=== PATIENT | male | born 1965 | race Two or more races ===

== ENCOUNTER 2023-02-27 14:48 | Emergency (ER) | payer MEDICAID ==
[~2023-02-27] VITALS: Ht 177.8 cm; Wt 128.8 kg
[~2023-02-27 14:48] MED LIST: IBUP-1955 PO; POLY17PO4 PO
--- NOTE | 2023-02-27 14:55 | NUR ---
LESLIE 860/ [facility] EVALWITH SI, DTS, DENIES HI. [facility] WILL PUT PT ON [id number]
--- NOTE | 2023-02-27 15:00 | NUR ---
dr muhammad at bedside for eval
[2023-02-27 15:25] LABS: BASOPHILS # (AUTO) 0.1 K/uL (0.0-0.2); BASOPHILS % (AUTO) 0.6 % (0.0-2.0); EOSINOPHILS % (AUTO) 1.2 % (0.0-6.0); HEMATOCRIT 39 % (39-51); HEMOGLOBIN 12.8 g/dL (13.5-17.5); LYMPHOCYTES # (AUTO) 1.3 K/uL (0.8-4.8); LYMPHOCYTES % (AUTO) 12.7 % (20.0-44.0); MEAN CORPUSCULAR HGB CONC 33 g/dl (31.0-36.0); MEAN CORPUSCULAR VOLUME 84 fL (80-96); MONOCYTES # (AUTO) 1.2 K/uL (0.1-1.30); MONOCYTES % (AUTO) 11.3 % (2.0-12.0); NEUTROPHILS # (AUTO) 7.6 K/uL (1.8-8.9); NEUTROPHILS % (AUTO) 74.2 % (43.0-81.0); PLATELET COUNT (AUTO) 334 K/uL (150-450); WHITE BLOOD COUNT (AUTO) 10.3 K/uL (4.3-11.0)
[2023-02-27 15:34] LABS: CALCIUM, SERUM 8.6 mg/dL (8.5-10.1); CARBON DIOXIDE 27 mmol/L (21-32); CHLORIDE 104 mmol/L (98-107); CREATININE 0.9 mg/dL (0.6-1.3); GLUCOSE 133 mg/dL (74-106); POTASSIUM 3.2 mmol/L (3.5-5.1); SODIUM SERUM 142 mmol/L (136-145); UREA NITROGEN, BLOOD 18 mg/dL (7-18)
[2023-02-27 15:40] LABS: ALANINE AMINOTRANSFERASE 55 U/L (12-78); ALBUMIN 2.5 g/dL (3.4-5.0); ALCOHOL, BLOOD < 3 mg/dL (0-10); ALKALINE PHOSPHATASE 98 U/L (46-116); ASPARTATE AMINOTRANSFERASE 35 U/L (15-37); BILIRUBIN,DIRECT 0.1 mg/dL (0.0-0.2); BILIRUBIN,TOTAL 0.5 mg/dL (0.2-1.0); TOTAL PROTEIN, SERUM 7.2 g/dL (6.4-8.2)
--- NOTE | 2023-02-27 16:14 | NUR ---
pee on his own , per dr muhammad. pt claims had hx of dilation sx of his urethra, stenotic urethra was noted
--- NOTE | 2023-02-27 16:19 | NUR ---
PLACED URINAL ON SIDE.
--- NOTE | 2023-02-27 18:28 | NUR ---
URINE COLLECTED, SENT TO LAB
[2023-02-27 19:36] LABS: BILIRUBIN,URINE NEGATIVE (NEGATIVE); COLOR,URINE YELLOW (YELLOW); LEUKOCYTE ESTERASE ,URINE 3+ (NEGATIVE); NITRITE, URINE POSITIVE (NEGATIVE); PROTEIN,URINE TRACE mg/dl (NEGATIVE); UGLUCOSE NEGATIVE (NEGATIVE); UROBILINOGEN,URINE 0.2 EU/dL (0.2)
[2023-02-27 19:44] LABS: BACTERIA,URINE 3+ /HPF (None Seen); RBC,URINE 21-50 /HPF (0-2); SQUAMOUS EPITHELIAL CELL,UR 0-2 /HPF (None Seen); WBC,URINE 51-80 /HPF (0-3)
[2023-02-27 19:55] LABS: BAND % (MANUAL) 2 % (0.0-5.0); EOSINOPHILS % (MANUAL) 2 % (0-4); LYMPHOCYTES % (MANUAL) 15 % (16-48); MONOCYTES % (MANUAL) 3 % (0-11.0); NEUTROPHILS % (MANUAL) 78 (42-76)
--- NOTE | 2023-02-27 20:47 | NUR ---
patient was evaluated by [facility] crisis team through video call
--- NOTE | 2023-02-27 21:00 | NUR ---
[facility] broke the hold and she is going to look for a placement.
--- NOTE | 2023-02-28 09:44 | NUR ---
IVANIA KEN AT BED SIDE FOR RE ASSESSMENT
--- NOTE | 2023-02-28 09:59 | NUR ---
SW called patient's mother Denise informing that the patient is ready to be picked up from [facility]. Left a message
--- NOTE | 2023-02-28 10:19 | NUR ---
patient mother at bed side.
--- NOTE | 2023-02-28 10:49 | NUR ---
Patient's mother Denise is elderly and can't take care of the patient. SW provided her with a list of SNF's and suggested she looks for a private caregiver is the patient is to stay at home.
--- NOTE | 2023-02-28 11:41 | NUR ---
Gave patient's mother Denise a referral for [facility] for the patient.
--- NOTE | 2023-02-28 12:20 | NUR ---
CALLED [facility] AND SET UP BLS TRANSPORT ETA 1300
--- NOTE | 2023-02-28 13:19 | NUR ---
TRANSPORTATION ARRIVED, REPORT GIVEN, PT LEAVING IN STABLE CONDITION.
[2023-02-28 13:25] VITALS: BP 132/91; TEMP 97.9; O2SAT 98
== END 2023-02-28 13:59 | disposition home or self-care (01) ==
LOC: ER 14:53
DX: R45.851 Suicidal ideations (principal); F20.9 Schizophrenia, unspecified; Z20.822 Contact with and (suspected) exposure to COVID-19
CPT/HCPCS: 99285; 85025; 80048; 87086; 80076; 85007; 81001; 36415; 87426; 80143; 80320; 80307; C9803; G0480

== ENCOUNTER 2024-07-04 07:56 | Inpatient (IN) | payer MEDICAID ==
[2024-07-04] VITALS (49 sets, daily range): BP systolic 78–145; BP diastolic 61–130; TEMP 99–104; O2SAT 95–100
[~2024-07-04] VITALS: Ht 182.9 cm; Wt 95.3 kg
[2024-07-04 08:18] LABS: BASOPHILS % (AUTO) 0.3 % (0.0-2.0); HEMATOCRIT 53 % (39-51); HEMOGLOBIN 17.5 g/dL (13.5-17.5); LYMPHOCYTES % (AUTO) 14.7 % (20.0-44.0); MEAN CORPUSCULAR HEMOGLOBIN 30 PG (26.0-33.0); MEAN CORPUSCULAR HGB CONC 33 g/dl (31.0-36.0); MEAN CORPUSCULAR VOLUME 92 fL (80-96); MONOCYTES # (AUTO) 0.9 K/uL (0.1-1.30); MONOCYTES % (AUTO) 14.5 % (2.0-12.0); NEUTROPHILS # (AUTO) 4.6 K/uL (1.8-8.9); NEUTROPHILS % (AUTO) 70.5 % (43.0-81.0); PLATELET COUNT (AUTO) 129 K/uL (150-450); RED BLOOD CELL COUNT(AUTO) 5.84 MIL/uL (4.5-6.0); RED CELL DISTRIBUTION WIDTH 16.8 % (11.5-15.0); WHITE BLOOD COUNT (AUTO) 6.5 K/uL (4.3-11.0)
[2024-07-04] MEDS ORDERED: ACETAMINOPHEN 650 MG/SUPP.RECT RC ONE (08:25)
[2024-07-04] MEDS: IV NS 0.9% 1,000 ML BAG IV ONE (08:30)
[2024-07-04 08:33] LABS: INR 1.22 (0.91-1.10); PARTIAL THROMBOPLASTIN TIME 25.5 SEC (24.3-34.3); PROTHROMBIN TIME 12.8 SECS (9.2-11.1)
[2024-07-04] MEDS: ACETAMINOPHEN 650 MG/SUPP.RECT RC ONE (08:35)
[2024-07-04] MEDS: CEFEPIME 1 GM in IV D5W 50 ML IV ONE (08:40)
[2024-07-04 08:54] LABS: BAND % (MANUAL) 2 % (0.0-5.0); LYMPHOCYTES % (MANUAL) 16 % (16-48); MONOCYTES % (MANUAL) 2 % (0-11.0); MYELOCYTES % 1 % (0-0); NEUTROPHILS % (MANUAL) 79 (42-76)
[2024-07-04 08:56] LABS: ANISOCYTOSIS 1+; PLATELET ESTIMATE DECREASED
[2024-07-04 09:07] LABS: ABG BASE EXCESS -1.6 mmol/L (-2.0-3.0); ABG OXYGEN SATURATION 91.5 % (94.0-98.0); ABG PCO2 28.3 mmHg (35.0-48.0); ABG PH 7.477 (7.350-7.450); ABG PO2 60.3 mmHg (83.0-108.0); ABG TOTAL HEMOGLOBIN 15.9 G/dL (13.5-17.5); COHb 0.2 % (0.5-1.5); MetHb 0.5 % (0.0-1.5); O2Hb 90.9 % (94.0-97.0); SITE, ABG RIGHT RADIAL
[2024-07-04 09:07] LABS: LACTIC ACID 3.4 mmol/L (0.4-2.0)
[2024-07-04 09:11] LABS: CALCIUM, SERUM 8.4 mg/dL (8.5-10.1); CARBON DIOXIDE 24 mmol/L (21-32); CREATININE 1.9 mg/dL (0.6-1.3); GLUCOSE 241 mg/dL (74-106); POTASSIUM 3.6 mmol/L (3.5-5.1); UREA NITROGEN, BLOOD 74 mg/dL (7-18)
[2024-07-04 09:12] LABS: CHLORIDE 130 mmol/L (98-107); SODIUM SERUM 167 mmol/L (136-145)
[2024-07-04 09:16] LABS: ALANINE AMINOTRANSFERASE 80 U/L (12-78); ALBUMIN 2.5 g/dL (3.4-5.0); ALKALINE PHOSPHATASE 107 U/L (46-116); ASPARTATE AMINOTRANSFERASE 27 U/L (15-37); BILIRUBIN,DIRECT 0.2 mg/dL (0.0-0.2); BILIRUBIN,TOTAL 0.6 mg/dL (0.2-1.0); TOTAL PROTEIN, SERUM 6.9 g/dL (6.4-8.2)
[2024-07-04] MEDS: VANCOMYCIN 1 GM in IV D5W 250 ML IV ONE (09:30)
[2024-07-04] MEDS ORDERED: HYDR25TA4 PO (09:43)
[2024-07-04] MEDS ORDERED: ARIP10TA57 PO (09:43)
[2024-07-04] MEDS ORDERED: ACET325T53 PO ×2 (09:43)
[2024-07-04] MEDS ORDERED: DAPA10TA PO (09:43)
[2024-07-04] MEDS ORDERED: LISI10TA29 PO (09:43)
[2024-07-04] MEDS ORDERED: LACT10SO29 PO (09:43)
[2024-07-04] MEDS ORDERED: ASPI-1169 PO (09:43)
[2024-07-04] MEDS ORDERED: MULT-213 PO (09:43)
[2024-07-04] MEDS ORDERED: MAGN400O6 PO (09:43)
[2024-07-04] MEDS ORDERED: BISA10SU11 RC (09:43)
[2024-07-04] MEDS ORDERED: NA P133E RC (09:43)
[2024-07-04] MEDS ORDERED: ACET-73 PO (09:43)
[2024-07-04] MEDS ORDERED: SENN8.6T19 PO (09:43)
[2024-07-04] MEDS: NOREPINEPHRINE 8 MG in IV D5W 242 ML IV PRN ×2 (09:59→12:30)
[2024-07-04] MEDS ORDERED: ASPIRIN 300 MG/SUPP.RECT RC ONE (10:11)
[2024-07-04] MEDS: ASPIRIN 300 MG/SUPP.RECT RC ONE (10:19)
[2024-07-04] MEDS ORDERED: DEXTROSE 50%-WATER 50 ML DISP.SYRIN IV PRN (11:00)
[2024-07-04 12:00] LABS: APPEARANCE,URINE TURBID (CLEAR); COLOR,URINE BROWN (YELLOW)
[2024-07-04] MEDS ORDERED: CEFEPIME 1 GM in IV D5W 50 ML IV SCH (12:00)
[2024-07-04 12:26] LABS: BACTERIA,URINE 1+ /HPF (None Seen); RBC,URINE 51-80 /HPF (0-2); SQUAMOUS EPITHELIAL CELL,UR 0-2 /HPF (None Seen); WBC,URINE 51-80 /HPF (0-3)
[2024-07-04] MEDS: NOREPINEPHRINE 8 MG in IV NS 0.9% 250 ML IV PRN (12:30)
[2024-07-04] MEDS: BLOOD SUGAR DIAGNOSTIC 1 EACH STRIP IN SCH ×2 (12:36→17:38)
[2024-07-04] MEDS: IV LR 1000 ML 1,000 ML IV SCH (12:37)
[2024-07-04] MEDS: ACETAMINOPHEN 650 MG/SUPP.RECT RC PRN ×2 (12:40→18:00)
[2024-07-04] MEDS: VANCOMYCIN 750 MG in IV D5W 250 ML IV ONE (12:54)
[2024-07-04] MEDS: INSULIN REGULAR, HUMAN 100 UNIT/ML 3 ML VIAL SQ PRN ×2 (13:04→17:43)
[2024-07-04] MEDS: IV NS 0.9% 1,000 ML IV ONE (13:46)
[2024-07-04] MEDS: IV LR 1000 ML 1,000 ML IV PRN (18:00)
[2024-07-04] MEDS: CEFEPIME 1 GM in IV D5W 50 ML IV SCH (19:20)
[2024-07-04] MEDS: HEPARIN SODIUM, PORCINE 5000 UNITS/1 ML VIAL IV ONE (20:26)
[2024-07-04] MEDS: HEPARIN INFUSION/D5W 500 ML IV PRN (20:31)
[2024-07-05] VITALS (102 sets, daily range): BP systolic 60–152; BP diastolic 41–110; TEMP 99–102.6; O2SAT 95–100
[2024-07-05 02:58] LABS: CALCIUM, SERUM 7.5 mg/dL (8.5-10.1); CREATININE 1.4 mg/dL (0.6-1.3)
[2024-07-05 03:13] LABS: THYROID STIMULATING HORMONE 0.18 uIU/mL (0.358-3.74)
[2024-07-05 03:20] LABS: LACTIC ACID 2.5 mmol/L (0.4-2.0); POTASSIUM 2.5 mmol/L (3.5-5.1)
[2024-07-05] MEDS: POTASSIUM CL. PREMIX PERIPHER. 50 ML IV SCH (04:07)
[2024-07-05 04:44] LABS: FIBRINOGEN ACTIVITY 637 Mg/dL (213-485); INR 1.37 (0.91-1.10); PROTHROMBIN TIME 14.2 SECS (9.2-11.1)
[2024-07-05 04:49] LABS: D-DIMER > 35.20 mg/L(FEU (0.17-0.50); PARTIAL THROMBOPLASTIN TIME 77.6 SEC (24.3-34.3)
[2024-07-05 05:30] LABS: ABG BASE EXCESS -1.4 mmol/L (-2.0-3.0); ABG OXYGEN SATURATION 94.1 % (94.0-98.0); ABG PH 7.447 (7.350-7.450); ABG PO2 68.2 mmHg (83.0-108.0); ABG TOTAL HEMOGLOBIN 15.2 G/dL (13.5-17.5); COHb 0.2 % (0.5-1.5); MetHb 0.3 % (0.0-1.5); O2Hb 93.6 % (94.0-97.0); SITE, ABG RIGHT RADIAL
[2024-07-05] MEDS: PHENYLEPHRINE 100 MG in IV NS 0.9% 240 ML IV PRN (09:22)
[2024-07-05] MEDS ORDERED: AMIODARONE 450 MG in IV D5W 241 ML IV PRN (09:30)
[2024-07-05] MEDS: AMIODARONE 150 MG in IV D5W 100 ML IV ONE (09:31)
[2024-07-05] MEDS: AMIODARONE 450 MG in IV D5W 241 ML IV PRN (09:47)
[2024-07-05] MEDS: IV 1/2NS 1000 ML 1,000 ML IV PRN (09:52)
[2024-07-05] MEDS ORDERED: POTASSIUM CL. PREMIX PERIPHER. 50 ML IV SCH (10:00)
[2024-07-05] MEDS: IV NS 0.9% 250 ML IV ONE ×2 (10:25→10:53)
[2024-07-05] MEDS: HYDROCORTISONE SOD SUCCINATE 100 MG/2 ML VIAL IV SCH (10:36)
[2024-07-05 10:46] LABS: ABG OXYGEN SATURATION 90.4 % (94.0-98.0); ABG PCO2 21.2 mmHg (35.0-48.0); ABG PH 7.342 (7.350-7.450); ABG PO2 60.6 mmHg (83.0-108.0); ABG TOTAL HEMOGLOBIN 15.2 G/dL (13.5-17.5); COHb 0.3 % (0.5-1.5); MetHb 0.2 % (0.0-1.5); O2Hb 89.9 % (94.0-97.0); SITE, ABG RIGHT BRACHIAL
[2024-07-05 11:44] LABS: BASOPHILS % (AUTO) 0.2 % (0.0-2.0); EOSINOPHILS % (AUTO) 0.1 % (0.0-6.0); HEMATOCRIT 40 % (39-51); HEMOGLOBIN 13.1 g/dL (13.5-17.5); LYMPHOCYTES # (AUTO) 0.8 K/uL (0.8-4.8); LYMPHOCYTES % (AUTO) 13.9 % (20.0-44.0); MEAN CORPUSCULAR HEMOGLOBIN 30 PG (26.0-33.0); MEAN CORPUSCULAR HGB CONC 33 g/dl (31.0-36.0); MEAN CORPUSCULAR VOLUME 92 fL (80-96); MONOCYTES # (AUTO) 0.5 K/uL (0.1-1.30); MONOCYTES % (AUTO) 7.7 % (2.0-12.0); NEUTROPHILS # (AUTO) 4.7 K/uL (1.8-8.9); NEUTROPHILS % (AUTO) 78.1 % (43.0-81.0); PLATELET COUNT (AUTO) 87 K/uL (150-450); RED CELL DISTRIBUTION WIDTH 17.3 % (11.5-15.0)
[2024-07-05 11:58] LABS: INR 1.39 (0.91-1.10); PROTHROMBIN TIME 14.4 SECS (9.2-11.1)
[2024-07-05 12:01] LABS: BAND % (MANUAL) 5 % (0.0-5.0); LYMPHOCYTES % (MANUAL) 13 % (16-48); MONOCYTES % (MANUAL) 5 % (0-11.0); NEUTROPHILS % (MANUAL) 77 (42-76)
[2024-07-05 12:02] LABS: PLATELET ESTIMATE DECREASED
[2024-07-05 12:08] LABS: ALBUMIN 1.5 g/dL (3.4-5.0); BILIRUBIN,TOTAL 0.7 mg/dL (0.2-1.0); CALCIUM, SERUM 7.2 mg/dL (8.5-10.1); CREATININE 1.5 mg/dL (0.6-1.3); MAGNESIUM 2.3 mg/dL (1.8-2.4); PHOSPHORUS 2.8 mg/dL (2.5-4.9); POTASSIUM 4.7 mmol/L (3.5-5.1); TOTAL PROTEIN, SERUM 4.9 g/dL (6.4-8.2)
[2024-07-05 12:14] LABS: THYROID STIMULATING HORMONE 0.48 uIU/mL (0.358-3.74)
[2024-07-05] MEDS: PROPOFOL 100 ML IV PRN (12:46)
[2024-07-05] MEDS: VANCOMYCIN HCL 1.25 GM in IV D5W 250 ML IV SCH (12:54)
[2024-07-05] MEDS: IV NS 0.9% 1,000 ML IV PRN (13:02)
[2024-07-05] MEDS: HEPARIN INFUSION/D5W 500 ML IV PRN (13:36)
[2024-07-05 13:37] LABS: ABG BASE EXCESS -7.9 mmol/L (-2.0-3.0); ABG PCO2 28.2 mmHg (35.0-48.0); ABG PH 7.369 (7.350-7.450); ABG PO2 78.5 mmHg (83.0-108.0); ABG TOTAL HEMOGLOBIN 13.9 G/dL (13.5-17.5); COHb 0.4 % (0.5-1.5); MetHb 0.2 % (0.0-1.5); O2Hb 94.4 % (94.0-97.0); PEEP,BG 0 cm H2O; SITE, ABG RIGHT BRACHIAL; VT, ABG 450 mL
[2024-07-05 14:57] LABS: CREATININE 1.4 mg/dL (0.6-1.3); POTASSIUM 3.6 mmol/L (3.5-5.1)
[2024-07-05] MEDS ORDERED: ETOMIDATE 2 MG/ML VIAL IV ONE (14:59)
[2024-07-05 15:14] LABS: CREATININE, URINE 71.3 MG/DL (30.0-125.0); URINE TOTAL PROTEIN 356.6 mg/dL (0-11.9)
[2024-07-05 15:40] LABS: COLOR,URINE RED (YELLOW)
[2024-07-05 15:41] LABS: APPEARANCE,URINE BLOODY (CLEAR); RBC,URINE TOO NUMEROUS TO COUN /HPF (0-2)
[2024-07-05 15:42] LABS: BACTERIA,URINE 2+ /HPF (None Seen)
[2024-07-05 15:43] LABS: FINE GRANULAR CASTS,URINE Few /LPF (None Seen); OTHER CASTS, URINE MIXED CELL CASTS 1+ /LPF (None Seen); SQUAMOUS EPITHELIAL CELL,UR 0-2 /HPF (None Seen)
[2024-07-05 15:44] LABS: URINE AMORPHOUS PHOSPHATES NOTE /HPF (None Seen)
[2024-07-05 17:59] LABS: EOSINOPHIL,URINE None Seen
[2024-07-06] VITALS (97 sets, daily range): BP systolic 83–131; BP diastolic 58–96; TEMP 100–100.7; O2SAT 92–100
[2024-07-06 01:19] LABS: HEMOGLOBIN 12.6 g/dL (13.5-17.5)
[2024-07-06] MEDS: AMIODARONE 150 MG/3 ML VIAL IV ONE (04:17)
[2024-07-06 05:12] LABS: BASOPHILS % (AUTO) 0.3 % (0.0-2.0); EOSINOPHILS % (AUTO) 0.1 % (0.0-6.0); HEMATOCRIT 44 % (39-51); LYMPHOCYTES # (AUTO) 1.1 K/uL (0.8-4.8); LYMPHOCYTES % (AUTO) 13.5 % (20.0-44.0); MEAN CORPUSCULAR HEMOGLOBIN 30 PG (26.0-33.0); MEAN CORPUSCULAR HGB CONC 32 g/dl (31.0-36.0); MEAN CORPUSCULAR VOLUME 93 fL (80-96); MONOCYTES # (AUTO) 0.6 K/uL (0.1-1.30); MONOCYTES % (AUTO) 7.6 % (2.0-12.0); NEUTROPHILS # (AUTO) 6.4 K/uL (1.8-8.9); NEUTROPHILS % (AUTO) 78.5 % (43.0-81.0); PLATELET COUNT (AUTO) 85 K/uL (150-450); RED BLOOD CELL COUNT(AUTO) 4.73 MIL/uL (4.5-6.0); RED CELL DISTRIBUTION WIDTH 17.6 % (11.5-15.0); WHITE BLOOD COUNT (AUTO) 8.1 K/uL (4.3-11.0)
[2024-07-06 05:26] LABS: PARTIAL THROMBOPLASTIN TIME 83.4 SEC (24.3-34.3)
[2024-07-06 05:56] LABS: BILIRUBIN,TOTAL 0.5 mg/dL (0.2-1.0); CALCIUM, SERUM 7.1 mg/dL (8.5-10.1); MAGNESIUM 2.3 mg/dL (1.8-2.4); PHOSPHORUS 2.1 mg/dL (2.5-4.9); POTASSIUM 3.4 mmol/L (3.5-5.1); TOTAL PROTEIN, SERUM 5.3 g/dL (6.4-8.2)
[2024-07-06 05:58] LABS: RHEUMATOID FACTOR SCREEN NEGATIVE (NEGATIVE)
[2024-07-06 06:05] LABS: ALBUMIN 1.4 g/dL (3.4-5.0)
[2024-07-06 07:02] LABS: C-REACTIVE PROTEIN 40.22 mg/dL (0.0-0.30)
[2024-07-06] MEDS: VANCOMYCIN 750 MG in IV D5W 250 ML IV SCH (09:00)
[2024-07-06 09:14] LABS: BAND % (MANUAL) 3 % (0.0-5.0); BASOPHILS % (MANUAL) 0 % (0.0-2.0); EOSINOPHILS % (MANUAL) 0 % (0-4); LYMPHOCYTES % (MANUAL) 18 % (16-48); MONOCYTES % (MANUAL) 4 % (0-11.0); NEUTROPHILS % (MANUAL) 75 (42-76); PLATELET ESTIMATE DECREASED
[2024-07-06 09:15] LABS: ANISOCYTOSIS 1+
[2024-07-06] MEDS: POTASSIUM CL. PREMIX PERIPHER. 50 ML IV SCH (09:23)
[2024-07-06 09:47] LABS: ABG BASE EXCESS -7.2 mmol/L (-2.0-3.0); ABG OXYGEN SATURATION 94.5 % (94.0-98.0); ABG PCO2 26.8 mmHg (35.0-48.0); ABG PH 7.396 (7.350-7.450); ABG PO2 68.3 mmHg (83.0-108.0); ABG TOTAL HEMOGLOBIN 12.9 G/dL (13.5-17.5); COHb 0.3 % (0.5-1.5); MetHb 0.1 % (0.0-1.5); O2Hb 94.1 % (94.0-97.0); PEEP,BG 0 cm H2O; SITE, ABG LEFT BRACHIAL; VT, ABG 450 mL
[2024-07-06] MEDS: NEUTRA PHOS 1 POWD.PACKET NG SCH (10:33)
[2024-07-06] MEDS: CEFEPIME 2 GM in IV D5W 100 ML IV SCH (12:15)
[2024-07-06] MEDS: AMIODARONE HCL 200 MG TABLET NG SCH (20:48)
[2024-07-07] VITALS (67 sets, daily range): BP systolic 87–121; BP diastolic 65–88; TEMP 98.2–99.8; O2SAT 96–100
[2024-07-07 02:07] LABS: FOLIC ACID 9.1 ng/mL (>3.0); HEPATITIS B SURFACE AB Non Reactive (.)
[2024-07-07 04:43] LABS: PARTIAL THROMBOPLASTIN TIME 37.7 SEC (24.3-34.3)
[2024-07-07 05:22] LABS: CALCIUM, SERUM 7.1 mg/dL (8.5-10.1); CREATININE 0.9 mg/dL (0.6-1.3); POTASSIUM 3.2 mmol/L (3.5-5.1)
[2024-07-07] MEDS ORDERED: POTASSIUM CHLORIDE 10 MEQ TABLET.SA GT ONE (07:00)
[2024-07-07 07:06] LABS: *HEPATITIS B SURFACE AG CONF Positive (.)
[2024-07-07] MEDS: POTASSIUM CHLORIDE 20 MEQ POWDER PACKET GT ONE (07:58)
[2024-07-07 08:08] LABS: IMMUNOGLOBULIN A, SERUM 336 mg/dL (90-386); IMMUNOGLOBULIN M, SERUM 40 mg/dL (20-172)
[2024-07-07 08:59] LABS: BASOPHILS % (AUTO) 0.2 % (0.0-2.0); HEMATOCRIT 34 % (39-51); LYMPHOCYTES # (AUTO) 0.8 K/uL (0.8-4.8); LYMPHOCYTES % (AUTO) 6.8 % (20.0-44.0); MEAN CORPUSCULAR HEMOGLOBIN 29 PG (26.0-33.0); MEAN CORPUSCULAR HGB CONC 33 g/dl (31.0-36.0); MEAN CORPUSCULAR VOLUME 89 fL (80-96); MONOCYTES # (AUTO) 0.6 K/uL (0.1-1.30); MONOCYTES % (AUTO) 5.4 % (2.0-12.0); NEUTROPHILS # (AUTO) 10.1 K/uL (1.8-8.9); NEUTROPHILS % (AUTO) 87.6 % (43.0-81.0); PLATELET COUNT (AUTO) 99 K/uL (150-450); RED BLOOD CELL COUNT(AUTO) 3.78 MIL/uL (4.5-6.0); RED CELL DISTRIBUTION WIDTH 16.7 % (11.5-15.0); WHITE BLOOD COUNT (AUTO) 11.5 K/uL (4.3-11.0)
[2024-07-07] MEDS: HYDROCORTISONE SOD SUCCINATE 100 MG/2 ML VIAL IV SCH (09:12)
[2024-07-07 10:07] LABS: *ANA ANTI-CENTROMERE B AB <0.2 AI (0.0-0.9); *ANA ANTI-DNA(DS) AB, QN 1 IU/mL (0-9); *ANA ANTI-JO-1 <0.2 AI (0.0-0.9); *ANA ANTICHROMATIN ANTIBODY <0.2 AI (0.0-0.9); *ANA RNP ANTIBODIES <0.2 AI (0.0-0.9); *ANA SJOGREN'S ANTI-SS-A <0.2 AI (0.0-0.9); *ANA SJOGREN'S ANTI-SS-B <0.2 AI (0.0-0.9); *ANAANTI-SCLERODERMA-70 AB <0.2 AI (0.0-0.9); *ANASMITH AB <0.2 AI (0.0-0.9)
[2024-07-07 12:09] LABS: FREE KAPPA LT CHAINS SERUM 60.8 mg/L (3.3-19.4); FREE LAMBDA LT CHAIN SERUM 32.8 mg/L (5.7-26.3); KAPPA/LAMBDA RATIO SERUM 1.85 (0.26-1.65)
[2024-07-07] MEDS: VANCOMYCIN 750 MG in IV D5W 250 ML IV SCH (20:01)
[2024-07-08] VITALS (75 sets, daily range): BP systolic 82–123; BP diastolic 63–87; TEMP 98.1–99.6; O2SAT 96–100
[2024-07-08 04:48] LABS: CALCIUM, SERUM 7.4 mg/dL (8.5-10.1); CREATININE 0.9 mg/dL (0.6-1.3); POTASSIUM 3.2 mmol/L (3.5-5.1)
[2024-07-08 05:03] LABS: PARTIAL THROMBOPLASTIN TIME 48.7 SEC (24.3-34.3)
[2024-07-08] MEDS ORDERED: POTASSIUM CL. PREMIX PERIPHER. 50 ML IV SCH (09:30)
[2024-07-08] MEDS: POTASSIUM CL. PREMIX PERIPHER. 50 ML IV SCH (12:11)
[2024-07-08] MEDS: IV D5W 1,000 ML IV PRN (12:27)
[2024-07-08 17:12] LABS: BASOPHILS % (AUTO) 0.2 % (0.0-2.0); HEMATOCRIT 33 % (39-51); HEMOGLOBIN 10.9 g/dL (13.5-17.5); LYMPHOCYTES # (AUTO) 1.1 K/uL (0.8-4.8); LYMPHOCYTES % (AUTO) 5.5 % (20.0-44.0); MEAN CORPUSCULAR HEMOGLOBIN 29 PG (26.0-33.0); MEAN CORPUSCULAR HGB CONC 33 g/dl (31.0-36.0); MEAN CORPUSCULAR VOLUME 89 fL (80-96); MONOCYTES # (AUTO) 0.8 K/uL (0.1-1.30); NEUTROPHILS # (AUTO) 18.9 K/uL (1.8-8.9); NEUTROPHILS % (AUTO) 90.3 % (43.0-81.0); PLATELET COUNT (AUTO) 143 K/uL (150-450); RED BLOOD CELL COUNT(AUTO) 3.75 MIL/uL (4.5-6.0); RED CELL DISTRIBUTION WIDTH 16.6 % (11.5-15.0); WHITE BLOOD COUNT (AUTO) 20.9 K/uL (4.3-11.0)
[2024-07-09] VITALS (75 sets, daily range): BP systolic 84–139; BP diastolic 64–95; TEMP 97.9–99.3; O2SAT 92–100
[2024-07-09 04:48] LABS: CALCIUM, SERUM 7.4 mg/dL (8.5-10.1)
[2024-07-09 04:51] LABS: PARTIAL THROMBOPLASTIN TIME 48.2 SEC (24.3-34.3)
[2024-07-09 05:08] LABS: BASOPHILS % (AUTO) 0.3 % (0.0-2.0); EOSINOPHILS # (AUTO) 0.3 K/uL (0.0-0.7); HEMATOCRIT 31 % (39-51); HEMOGLOBIN 10.1 g/dL (13.5-17.5); LYMPHOCYTES # (AUTO) 1.5 K/uL (0.8-4.8); LYMPHOCYTES % (AUTO) 8.3 % (20.0-44.0); MEAN CORPUSCULAR HEMOGLOBIN 29 PG (26.0-33.0); MEAN CORPUSCULAR HGB CONC 33 g/dl (31.0-36.0); MEAN CORPUSCULAR VOLUME 89 fL (80-96); MONOCYTES # (AUTO) 0.6 K/uL (0.1-1.30); MONOCYTES % (AUTO) 3.7 % (2.0-12.0); NEUTROPHILS % (AUTO) 85.7 % (43.0-81.0); PLATELET COUNT (AUTO) 129 K/uL (150-450); RED BLOOD CELL COUNT(AUTO) 3.46 MIL/uL (4.5-6.0); RED CELL DISTRIBUTION WIDTH 16.6 % (11.5-15.0); WHITE BLOOD COUNT (AUTO) 17.5 K/uL (4.3-11.0)
[2024-07-09 06:13] LABS: BAND % (MANUAL) 2 % (0.0-5.0); LYMPHOCYTES % (MANUAL) 7 % (16-48); MONOCYTES % (MANUAL) 3 % (0-11.0); MYELOCYTES % 6 % (0-0); NEUTROPHILS % (MANUAL) 82 (42-76)
[2024-07-09 06:14] LABS: PLATELET ESTIMATE DECREASED
[2024-07-09 06:15] LABS: ANISOCYTOSIS 1+; OVALOCYTES 1+
[2024-07-09] MEDS: CEFEPIME 2 GM in IV D5W 100 ML IV SCH (08:23)
[2024-07-09] MEDS: POTASSIUM CHLORIDE 20 MEQ POWDER PACKET NG SCH (10:43)
[2024-07-09] MEDS: THERAHONEY GEL 1.5 OZ TUBE TP SCH (11:21)
[2024-07-09] MEDS: DAKINS HALF STRENGTH (0.25%) 480 ML BOTTLE TOP SCH (16:01)
[2024-07-09] MEDS: GLUCERNA 1.2 1,000 ML BOTTLE NG PRN (17:45)
[2024-07-10] VITALS (42 sets, daily range): BP systolic 82–118; BP diastolic 63–88; TEMP 98.6–99.5; O2SAT 88–100
[2024-07-10 03:07] LABS: IMMUNOGLOBULIN A, SERUM 318 mg/dL (90-386); IMMUNOGLOBULIN G, SERUM 606 mg/dL (603-1613); IMMUNOGLOBULIN M, SERUM 37 mg/dL (20-172)
[2024-07-10] MEDS: MORPHINE SULFATE INJ 2 MG/ML DISP.SYRIN IV ONE (03:55)
[2024-07-10] MEDS ORDERED: MORPHINE SULFATE 8 MG/ML VIAL IV ONE (04:00)
[2024-07-10 04:55] LABS: BASOPHILS % (AUTO) 0.2 % (0.0-2.0); EOSINOPHILS # (AUTO) 0.1 K/uL (0.0-0.7); EOSINOPHILS % (AUTO) 0.3 % (0.0-6.0); HEMATOCRIT 35 % (39-51); HEMOGLOBIN 11.6 g/dL (13.5-17.5); LYMPHOCYTES # (AUTO) 1.4 K/uL (0.8-4.8); LYMPHOCYTES % (AUTO) 5.4 % (20.0-44.0); MEAN CORPUSCULAR HEMOGLOBIN 29 PG (26.0-33.0); MEAN CORPUSCULAR HGB CONC 33 g/dl (31.0-36.0); MEAN CORPUSCULAR VOLUME 89 fL (80-96); MONOCYTES # (AUTO) 0.7 K/uL (0.1-1.30); MONOCYTES % (AUTO) 2.6 % (2.0-12.0); NEUTROPHILS # (AUTO) 23.2 K/uL (1.8-8.9); NEUTROPHILS % (AUTO) 91.5 % (43.0-81.0); PLATELET COUNT (AUTO) 174 K/uL (150-450); RED BLOOD CELL COUNT(AUTO) 3.99 MIL/uL (4.5-6.0); RED CELL DISTRIBUTION WIDTH 16.5 % (11.5-15.0); WHITE BLOOD COUNT (AUTO) 25.3 K/uL (4.3-11.0)
[2024-07-10 04:58] LABS: CALCIUM, SERUM 7.8 mg/dL (8.5-10.1); CREATININE 1.1 mg/dL (0.6-1.3)
[2024-07-10 05:06] LABS: PARTIAL THROMBOPLASTIN TIME 61.7 SEC (24.3-34.3)
[2024-07-10 05:11] LABS: HEPATITIS B CORE AB, IgM Negative (Negative); HEPATITIS Be AG Negative (Negative)
[2024-07-10 05:12] LABS: POTASSIUM 2.3 mmol/L (3.5-5.1)
[2024-07-10] MEDS: POTASSIUM CL. PREMIX PERIPHER. 50 ML IV SCH ×2 (05:47→07:59)
[2024-07-10 06:20] LABS: BAND % (MANUAL) 3 % (0.0-5.0); LYMPHOCYTES % (MANUAL) 12 % (16-48); METAMYELOCYTES % 1 % (0-0); MONOCYTES % (MANUAL) 2 % (0-11.0); MYELOCYTES % 5 % (0-0); NEUTROPHILS % (MANUAL) 77 (42-76); PLATELET ESTIMATE ADEQUATE
[2024-07-10 08:45] LABS: ABG BASE EXCESS -2.9 mmol/L (-2.0-3.0); ABG PCO2 29.5 mmHg (35.0-48.0); ABG PO2 67.8 mmHg (83.0-108.0); ABG TOTAL HEMOGLOBIN 11.8 G/dL (13.5-17.5); COHb 0.4 % (0.5-1.5); MetHb 0.1 % (0.0-1.5); O2Hb 93.5 % (94.0-97.0); PEEP,BG 5 cm H2O; SITE, ABG RIGHT RADIAL; VT, ABG 450 mL
[2024-07-10] MEDS: FREE WATER VIA TUBE FEEDING GT SCH (08:52)
[2024-07-10 11:09] LABS: IMMUNOGLOBULIN G, SERUM 688 mg/dL (603-1613)
[2024-07-10 16:22] LABS: CALCIUM, SERUM 7.3 mg/dL (8.5-10.1); CREATININE 1.1 mg/dL (0.6-1.3); POTASSIUM 3.1 mmol/L (3.5-5.1)
[2024-07-11] VITALS (32 sets, daily range): BP systolic 97–134; BP diastolic 65–94; TEMP 99.3–99.5; O2SAT 89–99
[2024-07-11 05:26] LABS: BASOPHILS % (AUTO) 0.1 % (0.0-2.0); EOSINOPHILS # (AUTO) 0.1 K/uL (0.0-0.7); EOSINOPHILS % (AUTO) 0.2 % (0.0-6.0); HEMATOCRIT 32 % (39-51); HEMOGLOBIN 10.5 g/dL (13.5-17.5); LYMPHOCYTES % (AUTO) 4.1 % (20.0-44.0); MEAN CORPUSCULAR HEMOGLOBIN 29 PG (26.0-33.0); MEAN CORPUSCULAR HGB CONC 33 g/dl (31.0-36.0); MEAN CORPUSCULAR VOLUME 88 fL (80-96); MONOCYTES # (AUTO) 0.7 K/uL (0.1-1.30); MONOCYTES % (AUTO) 2.8 % (2.0-12.0); NEUTROPHILS # (AUTO) 21.8 K/uL (1.8-8.9); NEUTROPHILS % (AUTO) 92.8 % (43.0-81.0); PLATELET COUNT (AUTO) 178 K/uL (150-450); RED BLOOD CELL COUNT(AUTO) 3.59 MIL/uL (4.5-6.0); RED CELL DISTRIBUTION WIDTH 16.1 % (11.5-15.0); WHITE BLOOD COUNT (AUTO) 23.5 K/uL (4.3-11.0)
[2024-07-11 05:36] LABS: CALCIUM, SERUM 7.6 mg/dL (8.5-10.1)
[2024-07-11 05:40] LABS: INR 1.2 (0.91-1.10); PARTIAL THROMBOPLASTIN TIME 73.2 SEC (24.3-34.3); PROTHROMBIN TIME 12.6 SECS (9.2-11.1)
[2024-07-11 05:57] LABS: POTASSIUM 2.6 mmol/L (3.5-5.1)
[2024-07-11] MEDS: POTASSIUM CL. PREMIX PERIPHER. 50 ML IV SCH (06:54)
[2024-07-11 08:09] LABS: *SPE A/G RATIO 0.6 (0.7-1.7); *SPE ALBUMIN 1.6 g/dL (2.9-4.4); *SPE ALPHA-1-GLOBULIN 0.4 g/dL (0.0-0.4); *SPE ALPHA-2-GLOBULIN 1.1 g/dL (0.4-1.0); *SPE BETA GLOBULIN 0.8 g/dL (0.7-1.3); *SPE GLOBULIN, TOTAL 2.9 g/dL (2.2-3.9); *SPE M-SPIKE Not Observed g/dL (Not Observed); *SPE PROTEIN TOTAL 4.5 g/dL (6.0-8.5); *SPEGAMMA GLOBULIN 0.6 g/dL (0.4-1.8)
[2024-07-11] MEDS: Z GUARD REMEDY 4 OZ OINT TP SCH (08:09)
[2024-07-11 09:11] LABS: ABG BASE EXCESS -3.1 mmol/L (-2.0-3.0); ABG OXYGEN SATURATION 92.2 % (94.0-98.0); ABG PCO2 27.9 mmHg (35.0-48.0); ABG PH 7.462 (7.350-7.450); ABG PO2 60.7 mmHg (83.0-108.0); COHb 0.4 % (0.5-1.5); MetHb 0.1 % (0.0-1.5); O2Hb 91.7 % (94.0-97.0); SITE, ABG RIGHT RADIAL
[2024-07-11 09:28] LABS: BAND % (MANUAL) 3 % (0.0-5.0); LYMPHOCYTES % (MANUAL) 6 % (16-48); METAMYELOCYTES % 2 % (0-0); MONOCYTES % (MANUAL) 2 % (0-11.0)
[2024-07-11 09:59] LABS: MYELOCYTES % 1 % (0-0); NEUTROPHILS % (MANUAL) 86 (42-76)
[2024-07-11 10:00] LABS: PLATELET ESTIMATE ADEQUATE
[2024-07-11] MEDS: VANCOMYCIN 1 GM in IV D5W 250 ML IV SCH (10:25)
[2024-07-11 12:20] LABS: INR 1.12 (0.91-1.10); PROTHROMBIN TIME 11.8 SECS (9.2-11.1)
[2024-07-11 12:23] LABS: PARTIAL THROMBOPLASTIN TIME 84.1 SEC (24.3-34.3)
[2024-07-11 16:58] LABS: POTASSIUM 4.9 mmol/L (3.5-5.1)
[2024-07-11 16:59] LABS: CALCIUM, SERUM 8.2 mg/dL (8.5-10.1); CREATININE 1.1 mg/dL (0.6-1.3)
[2024-07-12] VITALS (24 sets, daily range): BP systolic 87–131; BP diastolic 59–93; TEMP 98.5–99.5; O2SAT 94–100
[2024-07-12 04:34] LABS: CALCIUM, SERUM 7.9 mg/dL (8.5-10.1); CREATININE 1.1 mg/dL (0.6-1.3); POTASSIUM 3.2 mmol/L (3.5-5.1)
[2024-07-12] MEDS: POTASSIUM CL. PREMIX PERIPHER. 50 ML IV SCH (08:30)
[2024-07-12] MEDS: FREE WATER VIA TUBE FEEDING GT SCH (08:31)
[2024-07-12 10:22] LABS: BASOPHILS # (AUTO) 0.1 K/uL (0.0-0.2); BASOPHILS % (AUTO) 0.3 % (0.0-2.0); EOSINOPHILS % (AUTO) 0.2 % (0.0-6.0); HEMATOCRIT 28 % (39-51); HEMOGLOBIN 9.4 g/dL (13.5-17.5); LYMPHOCYTES # (AUTO) 1.1 K/uL (0.8-4.8); LYMPHOCYTES % (AUTO) 4.8 % (20.0-44.0); MEAN CORPUSCULAR HEMOGLOBIN 29 PG (26.0-33.0); MEAN CORPUSCULAR HGB CONC 33 g/dl (31.0-36.0); MEAN CORPUSCULAR VOLUME 89 fL (80-96); MONOCYTES # (AUTO) 0.7 K/uL (0.1-1.30); MONOCYTES % (AUTO) 2.8 % (2.0-12.0); NEUTROPHILS # (AUTO) 21.3 K/uL (1.8-8.9); NEUTROPHILS % (AUTO) 91.9 % (43.0-81.0); PLATELET COUNT (AUTO) 180 K/uL (150-450); RED BLOOD CELL COUNT(AUTO) 3.21 MIL/uL (4.5-6.0); WHITE BLOOD COUNT (AUTO) 23.2 K/uL (4.3-11.0)
[2024-07-12 16:35] LABS: HEMOGLOBIN 8.8 g/dL (13.5-17.5)
[2024-07-13] VITALS (25 sets, daily range): BP systolic 88–125; BP diastolic 46–88; TEMP 97.8–98.9; O2SAT 99–100
[2024-07-13 05:15] LABS: BASOPHILS % (AUTO) 0.1 % (0.0-2.0); EOSINOPHILS # (AUTO) 0.1 K/uL (0.0-0.7); EOSINOPHILS % (AUTO) 0.3 % (0.0-6.0); HEMATOCRIT 30 % (39-51); HEMOGLOBIN 9.7 g/dL (13.5-17.5); LYMPHOCYTES # (AUTO) 1.3 K/uL (0.8-4.8); LYMPHOCYTES % (AUTO) 4.9 % (20.0-44.0); MEAN CORPUSCULAR HEMOGLOBIN 29 PG (26.0-33.0); MEAN CORPUSCULAR HGB CONC 33 g/dl (31.0-36.0); MEAN CORPUSCULAR VOLUME 88 fL (80-96); MONOCYTES # (AUTO) 0.7 K/uL (0.1-1.30); MONOCYTES % (AUTO) 2.7 % (2.0-12.0); NEUTROPHILS # (AUTO) 24.6 K/uL (1.8-8.9); PLATELET COUNT (AUTO) 210 K/uL (150-450); RED BLOOD CELL COUNT(AUTO) 3.35 MIL/uL (4.5-6.0); RED CELL DISTRIBUTION WIDTH 17.1 % (11.5-15.0); WHITE BLOOD COUNT (AUTO) 26.8 K/uL (4.3-11.0)
[2024-07-13 07:30] LABS: CALCIUM, SERUM 7.7 mg/dL (8.5-10.1); CREATININE 1.3 mg/dL (0.6-1.3); POTASSIUM 3.5 mmol/L (3.5-5.1)
[2024-07-13 11:20] LABS: D-DIMER 2.17 mg/L(FEU (0.17-0.50); INR 1.03 (0.91-1.10); PARTIAL THROMBOPLASTIN TIME 49.4 SEC (24.3-34.3); PROTHROMBIN TIME 10.9 SECS (9.2-11.1)
[2024-07-14] VITALS (26 sets, daily range): BP systolic 91–139; BP diastolic 60–97; TEMP 97.7–98.5; O2SAT 95–100
[2024-07-14 05:07] LABS: BASOPHILS # (AUTO) 0.1 K/uL (0.0-0.2); BASOPHILS % (AUTO) 0.3 % (0.0-2.0); EOSINOPHILS # (AUTO) 0.1 K/uL (0.0-0.7); EOSINOPHILS % (AUTO) 0.2 % (0.0-6.0); HEMATOCRIT 30 % (39-51); HEMOGLOBIN 9.7 g/dL (13.5-17.5); LYMPHOCYTES % (AUTO) 4.5 % (20.0-44.0); MEAN CORPUSCULAR HEMOGLOBIN 29 PG (26.0-33.0); MEAN CORPUSCULAR HGB CONC 33 g/dl (31.0-36.0); MEAN CORPUSCULAR VOLUME 88 fL (80-96); MONOCYTES # (AUTO) 0.6 K/uL (0.1-1.30); MONOCYTES % (AUTO) 2.6 % (2.0-12.0); NEUTROPHILS % (AUTO) 92.4 % (43.0-81.0); PLATELET COUNT (AUTO) 191 K/uL (150-450); RED BLOOD CELL COUNT(AUTO) 3.35 MIL/uL (4.5-6.0); RED CELL DISTRIBUTION WIDTH 16.6 % (11.5-15.0); WHITE BLOOD COUNT (AUTO) 22.7 K/uL (4.3-11.0)
[2024-07-14 05:23] LABS: CREATININE 1.2 mg/dL (0.6-1.3); POTASSIUM 3.1 mmol/L (3.5-5.1)
[2024-07-14 05:52] LABS: ANISOCYTOSIS 1+; BAND % (MANUAL) 1 % (0.0-5.0); EOSINOPHILS % (MANUAL) 1 % (0-4); LYMPHOCYTES % (MANUAL) 2 % (16-48); MYELOCYTES % 3 % (0-0); NEUTROPHILS % (MANUAL) 93 (42-76); PLATELET ESTIMATE ADEQUATE
[2024-07-14] MEDS: POTASSIUM CHLORIDE 20 MEQ POWDER PACKET GT SCH (09:03)
[2024-07-14] MEDS: IV NS 0.9% 250 ML IV PRN (20:18)
[2024-07-15] VITALS (24 sets, daily range): BP systolic 101–158; BP diastolic 60–106; TEMP 97.6–98.8; O2SAT 93–99
[2024-07-15 05:08] LABS: BASOPHILS # (AUTO) 0.2 K/uL (0.0-0.2); EOSINOPHILS % (AUTO) 0.1 % (0.0-6.0); HEMATOCRIT 30 % (39-51); HEMOGLOBIN 9.8 g/dL (13.5-17.5); LYMPHOCYTES # (AUTO) 0.9 K/uL (0.8-4.8); LYMPHOCYTES % (AUTO) 3.9 % (20.0-44.0); MEAN CORPUSCULAR HEMOGLOBIN 29 PG (26.0-33.0); MEAN CORPUSCULAR HGB CONC 32 g/dl (31.0-36.0); MEAN CORPUSCULAR VOLUME 89 fL (80-96); MONOCYTES # (AUTO) 0.7 K/uL (0.1-1.30); MONOCYTES % (AUTO) 3.2 % (2.0-12.0); NEUTROPHILS # (AUTO) 20.8 K/uL (1.8-8.9); NEUTROPHILS % (AUTO) 91.8 % (43.0-81.0); PLATELET COUNT (AUTO) 255 K/uL (150-450); RED BLOOD CELL COUNT(AUTO) 3.39 MIL/uL (4.5-6.0); RED CELL DISTRIBUTION WIDTH 16.2 % (11.5-15.0); WHITE BLOOD COUNT (AUTO) 22.7 K/uL (4.3-11.0)
[2024-07-15 05:37] LABS: CALCIUM, SERUM 7.7 mg/dL (8.5-10.1); CREATININE 1.4 mg/dL (0.6-1.3)
[2024-07-15 05:51] LABS: POTASSIUM 3.3 mmol/L (3.5-5.1)
[2024-07-15 05:59] LABS: BAND % (MANUAL) 2 % (0.0-5.0); LYMPHOCYTES % (MANUAL) 3 % (16-48); MONOCYTES % (MANUAL) 3 % (0-11.0); MYELOCYTES % 3 % (0-0); NEUTROPHILS % (MANUAL) 89 (42-76)
[2024-07-15 06:00] LABS: ANISOCYTOSIS 1+; PLATELET ESTIMATE ADEQUATE
[2024-07-15 06:09] LABS: ABG BASE EXCESS -1.4 mmol/L (-2.0-3.0); ABG OXYGEN SATURATION 89.1 % (94.0-98.0); ABG PH 7.483 (7.350-7.450); ABG PO2 51.7 mmHg (83.0-108.0); ABG TOTAL HEMOGLOBIN 10.7 G/dL (13.5-17.5); COHb 0.3 % (0.5-1.5); MetHb 0.1 % (0.0-1.5); O2Hb 88.7 % (94.0-97.0); PEEP,BG 8 cm H2O; SITE, ABG RIGHT RADIAL; VT, ABG 450 mL
[2024-07-15] MEDS: POTASSIUM CHLORIDE 20 MEQ POWDER PACKET NG ONE (09:38)
[2024-07-15] MEDS: POTASSIUM CHLORIDE 20 MEQ POWDER PACKET GT SCH (10:55)
[2024-07-15] MEDS: VANCOMYCIN 750 MG in IV D5W 250 ML IV SCH (10:55)
[2024-07-15] MEDS ORDERED: FLUCONAZOLE IN NS,PREMIX 200 MG in PREMIX 1 EA IV SCH (14:00)
[2024-07-15] MEDS: MICAFUNGIN SODIUM 100 MG in IV NS 0.9% 100 ML IV SCH (14:16)
[2024-07-16] VITALS (24 sets, daily range): BP systolic 91–148; BP diastolic 54–86; TEMP 97.5–97.8; O2SAT 96–100
[2024-07-16 09:38] LABS: BASOPHILS % (AUTO) 0.1 % (0.0-2.0); EOSINOPHILS % (AUTO) 0.2 % (0.0-6.0); HEMATOCRIT 23 % (39-51); HEMOGLOBIN 7.6 g/dL (13.5-17.5); LYMPHOCYTES # (AUTO) 0.9 K/uL (0.8-4.8); LYMPHOCYTES % (AUTO) 5.4 % (20.0-44.0); MEAN CORPUSCULAR HEMOGLOBIN 29 PG (26.0-33.0); MEAN CORPUSCULAR HGB CONC 32 g/dl (31.0-36.0); MEAN CORPUSCULAR VOLUME 88 fL (80-96); MONOCYTES # (AUTO) 0.7 K/uL (0.1-1.30); MONOCYTES % (AUTO) 4.2 % (2.0-12.0); NEUTROPHILS # (AUTO) 15.1 K/uL (1.8-8.9); NEUTROPHILS % (AUTO) 90.1 % (43.0-81.0); PLATELET COUNT (AUTO) 209 K/uL (150-450); RED BLOOD CELL COUNT(AUTO) 2.65 MIL/uL (4.5-6.0); RED CELL DISTRIBUTION WIDTH 16.1 % (11.5-15.0); WHITE BLOOD COUNT (AUTO) 16.7 K/uL (4.3-11.0)
[2024-07-16 09:57] LABS: CALCIUM, SERUM 7.5 mg/dL (8.5-10.1); CREATININE 1.3 mg/dL (0.6-1.3); POTASSIUM 3.4 mmol/L (3.5-5.1)
[2024-07-16 11:34] LABS: BAND % (MANUAL) 2 % (0.0-5.0); EOSINOPHILS % (MANUAL) 2 % (0-4); LYMPHOCYTES % (MANUAL) 7 % (16-48); MONOCYTES % (MANUAL) 4 % (0-11.0); NEUTROPHILS % (MANUAL) 85 (42-76)
[2024-07-16 11:35] LABS: PLATELET ESTIMATE ADEQUATE
[2024-07-16] MEDS: POTASSIUM CHLORIDE 20 MEQ POWDER PACKET NG SCH (12:04)
[2024-07-16 17:53] LABS: HEMOGLOBIN 7.8 g/dL (13.5-17.5)
[2024-07-16 18:06] LABS: INR 1.11 (0.91-1.10); PARTIAL THROMBOPLASTIN TIME 34.3 SEC (24.3-34.3); PROTHROMBIN TIME 11.7 SECS (9.2-11.1)
[2024-07-16] MEDS ORDERED: ANESTHESIA TRAY IN PYXIS 1 EA TRAY MC ONE (19:40)
[2024-07-16] MEDS: PANTOPRAZOLE 40 MG VIAL IV SCH (20:17)
[2024-07-17] VITALS (24 sets, daily range): BP systolic 90–116; BP diastolic 65–83; TEMP 97–98.2; O2SAT 98–100
[2024-07-17 05:21] LABS: BASOPHILS % (AUTO) 0.2 % (0.0-2.0); EOSINOPHILS % (AUTO) 0.1 % (0.0-6.0); HEMATOCRIT 23 % (39-51); HEMOGLOBIN 7.6 g/dL (13.5-17.5); LYMPHOCYTES % (AUTO) 5.8 % (20.0-44.0); MEAN CORPUSCULAR HEMOGLOBIN 29 PG (26.0-33.0); MEAN CORPUSCULAR HGB CONC 33 g/dl (31.0-36.0); MEAN CORPUSCULAR VOLUME 88 fL (80-96); MONOCYTES # (AUTO) 0.7 K/uL (0.1-1.30); MONOCYTES % (AUTO) 4.1 % (2.0-12.0); NEUTROPHILS # (AUTO) 15.8 K/uL (1.8-8.9); NEUTROPHILS % (AUTO) 89.8 % (43.0-81.0); PLATELET COUNT (AUTO) 196 K/uL (150-450); RED BLOOD CELL COUNT(AUTO) 2.62 MIL/uL (4.5-6.0); RED CELL DISTRIBUTION WIDTH 16.3 % (11.5-15.0); WHITE BLOOD COUNT (AUTO) 17.6 K/uL (4.3-11.0)
[2024-07-17 05:29] LABS: CALCIUM, SERUM 7.6 mg/dL (8.5-10.1); CREATININE 1.5 mg/dL (0.6-1.3); MAGNESIUM 2.1 mg/dL (1.8-2.4); PHOSPHORUS 3.2 mg/dL (2.5-4.9); POTASSIUM 3.7 mmol/L (3.5-5.1)
[2024-07-17 10:43] LABS: EOSINOPHILS % (MANUAL) 1 % (0-4); LYMPHOCYTES % (MANUAL) 6 % (16-48); METAMYELOCYTES % 1 % (0-0); MONOCYTES % (MANUAL) 7 % (0-11.0); MYELOCYTES % 2 % (0-0); NEUTROPHILS % (MANUAL) 83 (42-76)
[2024-07-17 10:44] LABS: ANISOCYTOSIS 1+; PLATELET ESTIMATE ADEQUATE
[2024-07-17] MEDS: FENTANYL PF 100MCG/2ML AMPUL IV PRN (14:12)
[2024-07-17] MEDS: LIDOCAINE HCL/MPF 1% 30 ML VIAL IJ ONE (14:30)
[2024-07-17] MEDS: LIDOCAINE HCL/PF 1% 30 ML VIAL IJ ONE (14:31)
[2024-07-17] MEDS: MIDAZOLAM HCL 2 MG/2ML VIAL IV ONE (17:04)
[2024-07-17] MEDS ORDERED: SUCCINYLCHOLINE CHLORIDE 20 MG/ML VIAL IV ONE (17:27)
[2024-07-17 17:50] LABS: INR 1.12 (0.91-1.10); PARTIAL THROMBOPLASTIN TIME 29.3 SEC (24.3-34.3); PROTHROMBIN TIME 11.8 SECS (9.2-11.1)
[2024-07-17 18:57] LABS: HEMOGLOBIN 8.1 g/dL (13.5-17.5)
[2024-07-17] MEDS: ENOXAPARIN SODIUM 100 MG/ML DISP.SYRIN SQ SCH (20:32)
[2024-07-17] MEDS: CEFEPIME 2 GM in IV D5W 100 ML IV SCH (20:34)
[2024-07-18] VITALS (21 sets, daily range): BP systolic 91–136; BP diastolic 47–84; TEMP 97.5–98; O2SAT 97–100
[2024-07-18 05:43] LABS: BASOPHILS % (AUTO) 0.1 % (0.0-2.0); EOSINOPHILS % (AUTO) 0.1 % (0.0-6.0); HEMATOCRIT 24 % (39-51); LYMPHOCYTES # (AUTO) 0.9 K/uL (0.8-4.8); LYMPHOCYTES % (AUTO) 6.4 % (20.0-44.0); MEAN CORPUSCULAR HEMOGLOBIN 29 PG (26.0-33.0); MEAN CORPUSCULAR HGB CONC 33 g/dl (31.0-36.0); MEAN CORPUSCULAR VOLUME 89 fL (80-96); MONOCYTES # (AUTO) 0.7 K/uL (0.1-1.30); MONOCYTES % (AUTO) 5.2 % (2.0-12.0); NEUTROPHILS # (AUTO) 12.6 K/uL (1.8-8.9); NEUTROPHILS % (AUTO) 88.2 % (43.0-81.0); PLATELET COUNT (AUTO) 241 K/uL (150-450); RED BLOOD CELL COUNT(AUTO) 2.74 MIL/uL (4.5-6.0); RED CELL DISTRIBUTION WIDTH 15.9 % (11.5-15.0); WHITE BLOOD COUNT (AUTO) 14.3 K/uL (4.3-11.0)
[2024-07-18 05:44] LABS: CALCIUM, SERUM 7.9 mg/dL (8.5-10.1); CREATININE 1.5 mg/dL (0.6-1.3)
[2024-07-18] MEDS: POTASSIUM CHLORIDE 20 MEQ POWDER PACKET NG SCH (10:26)
[2024-07-18] MEDS: POTASSIUM CL. PREMIX PERIPHER. 50 ML IV SCH (10:27)
[2024-07-18 13:07] LABS: HIV-1 p24 ANTIGEN NON REACTIVE (NONREACTIVE); HIV-1/2 ANTIBODY NON REACTIVE (NONREACTIVE)
[2024-07-18 15:34] LABS: APPEARANCE,URINE CLOUDY (CLEAR); BILIRUBIN,URINE NEGATIVE (NEGATIVE); BLOOD, URINE 2+ Ery/uL (NEGATIVE); COLOR,URINE YELLOW (YELLOW); KETONES,URINE NEGATIVE (NEGATIVE); LEUKOCYTE ESTERASE ,URINE 2+ (NEGATIVE); NITRITE, URINE NEGATIVE (NEGATIVE); PROTEIN,URINE 1+ mg/dl (NEGATIVE); UGLUCOSE NEGATIVE (NEGATIVE); UROBILINOGEN,URINE 0.2 EU/dL (0.2)
[2024-07-18 16:03] LABS: ADD URINE CULTURE YES; BACTERIA,URINE Moderate /HPF (None Seen); RBC,URINE TOO NUMEROUS TO COUN /HPF (0-2); SQUAMOUS EPITHELIAL CELL,UR None Seen /HPF (None Seen); WBC,URINE TOO NUMEROUS TO COUN /HPF (0-3); YEAST,URINE Hyphal filaments /HPF (None Seen)
[2024-07-18 18:51] LABS: HEMOGLOBIN 8.2 g/dL (13.5-17.5)
[2024-07-19] VITALS: BP 123/77; TEMP 97.7; O2SAT 99
[2024-07-19 04:00] VITALS: BP 110/73; TEMP 97.8; O2SAT 98
[2024-07-19 07:06] LABS: HEPATITIS A AB, TOTAL Negative (Negative); HEPATITIS B CORE AB, TOTAL Positive (Negative)
[2024-07-19 08:00] VITALS: BP 94/64; TEMP 97.5; O2SAT 100
[2024-07-19] MEDS: AMIODARONE HCL 200 MG TABLET NG SCH (09:39)
[2024-07-19] MEDS: APIXABAN 5 MG TABLET PO SCH (09:39)
[2024-07-19 09:46] LABS: ABG BASE EXCESS 0.5 mmol/L (-2.0-3.0); ABG OXYGEN SATURATION 97.6 % (94.0-98.0); ABG PH 7.478 (7.350-7.450); ABG PO2 95.1 mmHg (83.0-108.0); ABG TOTAL HEMOGLOBIN 7.7 G/dL (13.5-17.5); COHb 1.1 % (0.5-1.5); MetHb 0.3 % (0.0-1.5); O2Hb 96.2 % (94.0-97.0); PEEP,BG 5 cm H2O; SITE, ABG LEFT RADIAL; VT, ABG 450 mL
[2024-07-19 10:50] LABS: BASOPHILS % (AUTO) 0.2 % (0.0-2.0); EOSINOPHILS % (AUTO) 0.4 % (0.0-6.0); HEMATOCRIT 23 % (39-51); HEMOGLOBIN 7.5 g/dL (13.5-17.5); LYMPHOCYTES # (AUTO) 0.8 K/uL (0.8-4.8); LYMPHOCYTES % (AUTO) 7.5 % (20.0-44.0); MEAN CORPUSCULAR HEMOGLOBIN 29 PG (26.0-33.0); MEAN CORPUSCULAR HGB CONC 33 g/dl (31.0-36.0); MEAN CORPUSCULAR VOLUME 88 fL (80-96); MONOCYTES # (AUTO) 0.7 K/uL (0.1-1.30); MONOCYTES % (AUTO) 6.2 % (2.0-12.0); NEUTROPHILS # (AUTO) 9.3 K/uL (1.8-8.9); NEUTROPHILS % (AUTO) 85.7 % (43.0-81.0); PLATELET COUNT (AUTO) 220 K/uL (150-450); RED BLOOD CELL COUNT(AUTO) 2.56 MIL/uL (4.5-6.0); RED CELL DISTRIBUTION WIDTH 15.8 % (11.5-15.0); WHITE BLOOD COUNT (AUTO) 10.8 K/uL (4.3-11.0)
[2024-07-19 11:00] LABS: CALCIUM, SERUM 7.6 mg/dL (8.5-10.1); CREATININE 1.6 mg/dL (0.6-1.3); POTASSIUM 2.9 mmol/L (3.5-5.1)
[2024-07-19 12:00] VITALS: BP 104/70; TEMP 97.6; O2SAT 96
[2024-07-19 13:19] LABS: BAND % (MANUAL) 1 % (0.0-5.0); EOSINOPHILS % (MANUAL) 1 % (0-4); LYMPHOCYTES % (MANUAL) 7 % (16-48); METAMYELOCYTES % 1 % (0-0); MONOCYTES % (MANUAL) 4 % (0-11.0); MYELOCYTES % 1 % (0-0); NEUTROPHILS % (MANUAL) 85 (42-76); PLATELET ESTIMATE ADEQUATE
[2024-07-19 13:20] LABS: STOMATOCYTES 1+
[2024-07-19 16:00] VITALS: BP 104/70; TEMP 97.6; O2SAT 97
[2024-07-19] MEDS: APIXABAN 5 MG TABLET GT SCH (16:40)
[2024-07-19] MEDS: POTASSIUM CHLORIDE 20 MEQ POWDER PACKET GT ONE (16:40)
[2024-07-19] MEDS: PANTOPRAZOLE 40 MG VIAL IV SCH (16:40)
[2024-07-19 18:35] LABS: HEMOGLOBIN 8.2 g/dL (13.5-17.5)
[2024-07-19 20:00] VITALS: BP 119/79; TEMP 98.8; O2SAT 98
[2024-07-20] VITALS (10 sets, daily range): BP systolic 90–118; BP diastolic 60–89; TEMP 97.7–98.6; O2SAT 94–100
[2024-07-20 05:10] LABS: HEPATITIS Be AB Reactive (Negative)
[2024-07-20 11:42] LABS: ABG BASE EXCESS -0.5 mmol/L (-2.0-3.0); ABG OXYGEN SATURATION 94.6 % (94.0-98.0); ABG PCO2 32.8 mmHg (35.0-48.0); ABG PH 7.465 (7.350-7.450); ABG PO2 73.8 mmHg (83.0-108.0); ABG TOTAL HEMOGLOBIN 7.6 G/dL (13.5-17.5); COHb 0.2 % (0.5-1.5); MetHb 0.3 % (0.0-1.5); O2Hb 94.1 % (94.0-97.0); SITE, ABG RIGHT RADIAL
[2024-07-20 16:00] LABS: BASOPHILS % (AUTO) 0.3 % (0.0-2.0); EOSINOPHILS % (AUTO) 0.1 % (0.0-6.0); HEMATOCRIT 22 % (39-51); HEMOGLOBIN 7.1 g/dL (13.5-17.5); LYMPHOCYTES # (AUTO) 0.4 K/uL (0.8-4.8); LYMPHOCYTES % (AUTO) 5.7 % (20.0-44.0); MEAN CORPUSCULAR HEMOGLOBIN 29 PG (26.0-33.0); MEAN CORPUSCULAR HGB CONC 33 g/dl (31.0-36.0); MEAN CORPUSCULAR VOLUME 90 fL (80-96); MONOCYTES # (AUTO) 0.3 K/uL (0.1-1.30); MONOCYTES % (AUTO) 4.5 % (2.0-12.0); NEUTROPHILS # (AUTO) 6.3 K/uL (1.8-8.9); NEUTROPHILS % (AUTO) 89.4 % (43.0-81.0); PLATELET COUNT (AUTO) 174 K/uL (150-450); RED BLOOD CELL COUNT(AUTO) 2.44 MIL/uL (4.5-6.0); RED CELL DISTRIBUTION WIDTH 16.6 % (11.5-15.0); WHITE BLOOD COUNT (AUTO) 7.1 K/uL (4.3-11.0)
[2024-07-20 16:29] LABS: CALCIUM, SERUM 7.5 mg/dL (8.5-10.1); CREATININE 1.8 mg/dL (0.6-1.3)
[2024-07-20] MEDS: PANTOPRAZOLE 40 MG/PACK PACK GT SCH (16:30)
[2024-07-20 16:48] LABS: POTASSIUM 3.4 mmol/L (3.5-5.1)
[2024-07-21] VITALS (12 sets, daily range): BP systolic 115–137; BP diastolic 60–88; TEMP 97.5–98.6; O2SAT 94–98
[2024-07-21] MEDS: POTASSIUM CHLORIDE 20 MEQ POWDER PACKET GT SCH (01:43)
[2024-07-21] MEDS: IV NS 0.9% 500 ML BAG IV ONE (07:20)
[2024-07-21 09:12] LABS: BASOPHILS % (AUTO) 0.2 % (0.0-2.0); EOSINOPHILS % (AUTO) 1.2 % (0.0-6.0); HEMATOCRIT 24 % (39-51); HEMOGLOBIN 7.9 g/dL (13.5-17.5); LYMPHOCYTES # (AUTO) 0.5 K/uL (0.8-4.8); LYMPHOCYTES % (AUTO) 15.5 % (20.0-44.0); MEAN CORPUSCULAR HEMOGLOBIN 29 PG (26.0-33.0); MEAN CORPUSCULAR HGB CONC 33 g/dl (31.0-36.0); MEAN CORPUSCULAR VOLUME 89 fL (80-96); MONOCYTES # (AUTO) 0.3 K/uL (0.1-1.30); MONOCYTES % (AUTO) 8.7 % (2.0-12.0); NEUTROPHILS # (AUTO) 2.6 K/uL (1.8-8.9); NEUTROPHILS % (AUTO) 74.4 % (43.0-81.0); PLATELET COUNT (AUTO) 219 K/uL (150-450); RED BLOOD CELL COUNT(AUTO) 2.71 MIL/uL (4.5-6.0); RED CELL DISTRIBUTION WIDTH 15.8 % (11.5-15.0); WHITE BLOOD COUNT (AUTO) 3.5 K/uL (4.3-11.0)
[2024-07-21 09:13] LABS: CALCIUM, SERUM 7.8 mg/dL (8.5-10.1); CREATININE 1.6 mg/dL (0.6-1.3); MAGNESIUM 2.3 mg/dL (1.8-2.4); POTASSIUM 3.4 mmol/L (3.5-5.1)
[2024-07-22] VITALS (16 sets, daily range): BP systolic 110–130; BP diastolic 70–89; TEMP 98.2–98.6; O2SAT 95–99
[2024-07-22] MEDS: FREE WATER VIA TUBE FEEDING GT SCH (11:07)
[2024-07-22 15:21] LABS: BASOPHILS % (AUTO) 0.1 % (0.0-2.0); EOSINOPHILS % (AUTO) 0.4 % (0.0-6.0); LYMPHOCYTES # (AUTO) 0.2 K/uL (0.8-4.8); LYMPHOCYTES % (AUTO) 8.5 % (20.0-44.0); MEAN CORPUSCULAR HEMOGLOBIN 30 PG (26.0-33.0); MEAN CORPUSCULAR HGB CONC 34 g/dl (31.0-36.0); MEAN CORPUSCULAR VOLUME 88 fL (80-96); MONOCYTES # (AUTO) 0.3 K/uL (0.1-1.30); NEUTROPHILS # (AUTO) 2.4 K/uL (1.8-8.9); PLATELET COUNT (AUTO) 169 K/uL (150-450); RED BLOOD CELL COUNT(AUTO) 2.27 MIL/uL (4.5-6.0); RED CELL DISTRIBUTION WIDTH 16.1 % (11.5-15.0); WHITE BLOOD COUNT (AUTO) 2.9 K/uL (4.3-11.0)
[2024-07-22 15:39] LABS: HEMATOCRIT 20 % (39-51); HEMOGLOBIN 6.8 g/dL (13.5-17.5)
[2024-07-22 15:42] LABS: BILIRUBIN,TOTAL 0.1 mg/dL (0.2-1.0); CALCIUM, SERUM 7.3 mg/dL (8.5-10.1); CREATININE 1.6 mg/dL (0.6-1.3); MAGNESIUM 2.1 mg/dL (1.8-2.4); POTASSIUM 3.5 mmol/L (3.5-5.1); TOTAL PROTEIN, SERUM 5.1 g/dL (6.4-8.2)
[2024-07-22 15:47] LABS: ALBUMIN 1.1 g/dL (3.4-5.0)
[2024-07-22 15:56] LABS: BAND % (MANUAL) 1 % (0.0-5.0); LYMPHOCYTES % (MANUAL) 13 % (16-48); MONOCYTES % (MANUAL) 3 % (0-11.0); MYELOCYTES % 1 % (0-0); NEUTROPHILS % (MANUAL) 82 (42-76); PLATELET ESTIMATE ADEQUATE
[2024-07-22 15:57] LABS: ANISOCYTOSIS 1+
[2024-07-22 15:58] LABS: STOMATOCYTES 1+
[2024-07-23] VITALS (13 sets, daily range): BP systolic 114–138; BP diastolic 74–85; TEMP 97.7–98.8; O2SAT 97–99
[2024-07-23 07:52] LABS: BASOPHILS % (AUTO) 0.2 % (0.0-2.0); EOSINOPHILS # (AUTO) 0.1 K/uL (0.0-0.7); EOSINOPHILS % (AUTO) 1.7 % (0.0-6.0); HEMATOCRIT 26 % (39-51); HEMOGLOBIN 8.5 g/dL (13.5-17.5); LYMPHOCYTES # (AUTO) 0.8 K/uL (0.8-4.8); LYMPHOCYTES % (AUTO) 18.9 % (20.0-44.0); MEAN CORPUSCULAR HEMOGLOBIN 29 PG (26.0-33.0); MEAN CORPUSCULAR HGB CONC 33 g/dl (31.0-36.0); MEAN CORPUSCULAR VOLUME 87 fL (80-96); MONOCYTES # (AUTO) 0.6 K/uL (0.1-1.30); MONOCYTES % (AUTO) 14.3 % (2.0-12.0); NEUTROPHILS # (AUTO) 2.9 K/uL (1.8-8.9); NEUTROPHILS % (AUTO) 64.9 % (43.0-81.0); PLATELET COUNT (AUTO) 176 K/uL (150-450); RED BLOOD CELL COUNT(AUTO) 2.96 MIL/uL (4.5-6.0); RED CELL DISTRIBUTION WIDTH 16.8 % (11.5-15.0); WHITE BLOOD COUNT (AUTO) 4.4 K/uL (4.3-11.0)
[2024-07-23 08:11] LABS: CALCIUM, SERUM 7.6 mg/dL (8.5-10.1); CREATININE 1.4 mg/dL (0.6-1.3); POTASSIUM 3.3 mmol/L (3.5-5.1)
[2024-07-23] MEDS: POTASSIUM CHLORIDE 20 MEQ POWDER PACKET NG SCH (10:41)
[2024-07-23 13:05] LABS: BAND % (MANUAL) 2 % (0.0-5.0); EOSINOPHILS % (MANUAL) 1 % (0-4); LYMPHOCYTES % (MANUAL) 21 % (16-48); MONOCYTES % (MANUAL) 4 % (0-11.0); NEUTROPHILS % (MANUAL) 72 (42-76); PLATELET ESTIMATE ADEQUATE
[2024-07-23 13:06] LABS: ANISOCYTOSIS 1+; STOMATOCYTES 1+
[2024-07-23] MEDS: FLUCONAZOLE (100 MG) 100 MG TABLET GT SCH (22:57)
[2024-07-24] VITALS (11 sets, daily range): BP systolic 112–131; BP diastolic 57–85; TEMP 97.3–98.4; O2SAT 96–99
[2024-07-24 07:57] LABS: BASOPHILS % (AUTO) 0.2 % (0.0-2.0); EOSINOPHILS # (AUTO) 0.1 K/uL (0.0-0.7); EOSINOPHILS % (AUTO) 1.4 % (0.0-6.0); HEMATOCRIT 25 % (39-51); HEMOGLOBIN 8.3 g/dL (13.5-17.5); LYMPHOCYTES % (AUTO) 17.3 % (20.0-44.0); MEAN CORPUSCULAR HEMOGLOBIN 29 PG (26.0-33.0); MEAN CORPUSCULAR HGB CONC 33 g/dl (31.0-36.0); MEAN CORPUSCULAR VOLUME 87 fL (80-96); MONOCYTES # (AUTO) 0.8 K/uL (0.1-1.30); MONOCYTES % (AUTO) 14.5 % (2.0-12.0); NEUTROPHILS # (AUTO) 3.7 K/uL (1.8-8.9); NEUTROPHILS % (AUTO) 66.6 % (43.0-81.0); PLATELET COUNT (AUTO) 177 K/uL (150-450); RED BLOOD CELL COUNT(AUTO) 2.91 MIL/uL (4.5-6.0); RED CELL DISTRIBUTION WIDTH 16.7 % (11.5-15.0); WHITE BLOOD COUNT (AUTO) 5.6 K/uL (4.3-11.0)
[2024-07-24 08:03] LABS: CALCIUM, SERUM 7.6 mg/dL (8.5-10.1); CREATININE 1.3 mg/dL (0.6-1.3); POTASSIUM 3.7 mmol/L (3.5-5.1)
[2024-07-25] VITALS (12 sets, daily range): BP systolic 122–142; BP diastolic 82–95; TEMP 98.1–98.8; O2SAT 95–99
[2024-07-25 08:30] LABS: BASOPHILS % (AUTO) 0.1 % (0.0-2.0); EOSINOPHILS # (AUTO) 0.1 K/uL (0.0-0.7); EOSINOPHILS % (AUTO) 1.7 % (0.0-6.0); HEMATOCRIT 24 % (39-51); HEMOGLOBIN 7.9 g/dL (13.5-17.5); LYMPHOCYTES # (AUTO) 0.8 K/uL (0.8-4.8); LYMPHOCYTES % (AUTO) 14.7 % (20.0-44.0); MEAN CORPUSCULAR HEMOGLOBIN 29 PG (26.0-33.0); MEAN CORPUSCULAR HGB CONC 34 g/dl (31.0-36.0); MEAN CORPUSCULAR VOLUME 88 fL (80-96); MONOCYTES # (AUTO) 0.8 K/uL (0.1-1.30); MONOCYTES % (AUTO) 14.8 % (2.0-12.0); NEUTROPHILS # (AUTO) 3.9 K/uL (1.8-8.9); NEUTROPHILS % (AUTO) 68.7 % (43.0-81.0); PLATELET COUNT (AUTO) 172 K/uL (150-450); RED CELL DISTRIBUTION WIDTH 16.5 % (11.5-15.0); WHITE BLOOD COUNT (AUTO) 5.6 K/uL (4.3-11.0)
[2024-07-25 08:51] LABS: BILIRUBIN,TOTAL 0.1 mg/dL (0.2-1.0); CALCIUM, SERUM 7.7 mg/dL (8.5-10.1); CREATININE 1.3 mg/dL (0.6-1.3); MAGNESIUM 2.3 mg/dL (1.8-2.4); PHOSPHORUS 2.4 mg/dL (2.5-4.9); POTASSIUM 3.6 mmol/L (3.5-5.1); TOTAL PROTEIN, SERUM 5.3 g/dL (6.4-8.2)
[2024-07-25 08:56] LABS: ALBUMIN 1.3 g/dL (3.4-5.0)
[2024-07-25 11:05] LABS: EOSINOPHILS % (MANUAL) 2 % (0-4); LYMPHOCYTES % (MANUAL) 18 % (16-48); MONOCYTES % (MANUAL) 10 % (0-11.0); MYELOCYTES % 1 % (0-0); NEUTROPHILS % (MANUAL) 69 (42-76)
[2024-07-25 11:08] LABS: PLATELET ESTIMATE ADEQUATE
[2024-07-25] MEDS: NEUTRA PHOS 1 POWD.PACKET GT ONE (11:58)
[2024-07-25 16:29] LABS: BASOPHILS % (AUTO) 0.1 % (0.0-2.0); EOSINOPHILS % (AUTO) 0.1 % (0.0-6.0); HEMATOCRIT 24 % (39-51); HEMOGLOBIN 7.8 g/dL (13.5-17.5); LYMPHOCYTES # (AUTO) 0.4 K/uL (0.8-4.8); LYMPHOCYTES % (AUTO) 7.9 % (20.0-44.0); MEAN CORPUSCULAR HEMOGLOBIN 29 PG (26.0-33.0); MEAN CORPUSCULAR HGB CONC 33 g/dl (31.0-36.0); MEAN CORPUSCULAR VOLUME 87 fL (80-96); MONOCYTES # (AUTO) 0.7 K/uL (0.1-1.30); MONOCYTES % (AUTO) 12.9 % (2.0-12.0); NEUTROPHILS # (AUTO) 4.5 K/uL (1.8-8.9); PLATELET COUNT (AUTO) 169 K/uL (150-450); RED BLOOD CELL COUNT(AUTO) 2.73 MIL/uL (4.5-6.0); RED CELL DISTRIBUTION WIDTH 16.4 % (11.5-15.0); WHITE BLOOD COUNT (AUTO) 5.7 K/uL (4.3-11.0)
[2024-07-26] VITALS (8 sets, daily range): BP systolic 121–141; BP diastolic 79–89; TEMP 98.1–99.3; O2SAT 95–98
[2024-07-26 07:09] LABS: BASOPHILS % (AUTO) 0.2 % (0.0-2.0); EOSINOPHILS # (AUTO) 0.1 K/uL (0.0-0.7); EOSINOPHILS % (AUTO) 1.4 % (0.0-6.0); HEMATOCRIT 24 % (39-51); HEMOGLOBIN 8.1 g/dL (13.5-17.5); LYMPHOCYTES # (AUTO) 0.8 K/uL (0.8-4.8); LYMPHOCYTES % (AUTO) 15.5 % (20.0-44.0); MEAN CORPUSCULAR HEMOGLOBIN 30 PG (26.0-33.0); MEAN CORPUSCULAR HGB CONC 34 g/dl (31.0-36.0); MEAN CORPUSCULAR VOLUME 88 fL (80-96); MONOCYTES % (AUTO) 18.5 % (2.0-12.0); NEUTROPHILS # (AUTO) 3.4 K/uL (1.8-8.9); NEUTROPHILS % (AUTO) 64.4 % (43.0-81.0); PLATELET COUNT (AUTO) 187 K/uL (150-450); RED BLOOD CELL COUNT(AUTO) 2.73 MIL/uL (4.5-6.0); RED CELL DISTRIBUTION WIDTH 16.6 % (11.5-15.0); WHITE BLOOD COUNT (AUTO) 5.3 K/uL (4.3-11.0)
[2024-07-26 07:47] LABS: BILIRUBIN,TOTAL 0.2 mg/dL (0.2-1.0); CALCIUM, SERUM 7.9 mg/dL (8.5-10.1); CREATININE 1.2 mg/dL (0.6-1.3); MAGNESIUM 2.2 mg/dL (1.8-2.4); POTASSIUM 3.5 mmol/L (3.5-5.1); TOTAL PROTEIN, SERUM 5.6 g/dL (6.4-8.2)
[2024-07-26 11:25] LABS: ALBUMIN 1.4 g/dL (3.4-5.0)
== END 2024-07-26 18:02 | DRG 4 ==
LOC: ER 07:58 → ICU 11:00 → TELE-TD 07-18 20:54 → TELE1 07-19 10:00
PROVIDERS: ADMIT Nurse Practitioner Acute Care
PROC: 06HY33Z Insertion of Infusion Device into Lower Vein, Percutaneous Approach (ICD-10-PCS; 2024-07-04)
PROC: 5A1955Z Respiratory Ventilation, Greater than 96 Consecutive Hours (ICD-10-PCS; principal; 2024-07-05)
PROC: 0BH18EZ Insertion of Endotracheal Airway into Trachea, Via Natural or Artificial Opening Endoscopic (ICD-10-PCS; 2024-07-05)
PROC: 5A2204Z Restoration of Cardiac Rhythm, Single (ICD-10-PCS; 2024-07-05)
PROC: 0DH63UZ Insertion of Feeding Device into Stomach, Percutaneous Approach (ICD-10-PCS; 2024-07-16)
PROC: 0B113F4 Bypass Trachea to Cutaneous with Tracheostomy Device, Percutaneous Approach (ICD-10-PCS; 2024-07-17)
PROC: 30233N1 Transfusion of Nonautologous Red Blood Cells into Peripheral Vein, Percutaneous Approach (ICD-10-PCS; 2024-07-22)
PROC: 0KBN0ZZ Excision of Right Hip Muscle, Open Approach (ICD-10-PCS; 2024-07-25)
PROC: 0KBP0ZZ Excision of Left Hip Muscle, Open Approach (ICD-10-PCS; 2024-07-25)
DX: A41.9 Sepsis, unspecified organism (principal); R65.21 Severe sepsis with septic shock; N17.0 Acute kidney failure with tubular necrosis; D65 Disseminated intravascular coagulation [defibrination syndrome]; G93.41 Metabolic encephalopathy; J15.69 Pneumonia due to other Gram-negative bacteria; D61.818 Other pancytopenia; L89.154 Pressure ulcer of sacral region, stage 4; I82.403 Acute embolism and thrombosis of unspecified deep veins of lower extremity, bilateral; E87.0 Hyperosmolality and hypernatremia; I21.A1 Myocardial infarction type 2; J96.01 Acute respiratory failure with hypoxia; I47.10 Supraventricular tachycardia, unspecified; N17.9 Acute kidney failure, unspecified; N18.9 Chronic kidney disease, unspecified; I12.9 Hypertensive chronic kidney disease with stage 1 through stage 4 chronic kidney disease, or unspecified chronic kidney disease; I69.954 Hemiplegia and hemiparesis following unspecified cerebrovascular disease affecting left non-dominant side; E11.22 Type 2 diabetes mellitus with diabetic chronic kidney disease; E87.5 Hyperkalemia; Z87.891 Personal history of nicotine dependence; Z79.01 Long term (current) use of anticoagulants; Y95 Nosocomial condition; N13.30 Unspecified hydronephrosis; Z79.82 Long term (current) use of aspirin; Z79.899 Other long term (current) drug therapy; K25.9 Gastric ulcer, unspecified as acute or chronic, without hemorrhage or perforation; K26.9 Duodenal ulcer, unspecified as acute or chronic, without hemorrhage or perforation; K29.70 Gastritis, unspecified, without bleeding; I67.2 Cerebral atherosclerosis; E83.39 Other disorders of phosphorus metabolism; E86.0 Dehydration; E86.1 Hypovolemia; E87.20 Acidosis, unspecified; E87.6 Hypokalemia; E88.09 Other disorders of plasma-protein metabolism, not elsewhere classified; F20.9 Schizophrenia, unspecified; G93.89 Other specified disorders of brain; I25.2 Old myocardial infarction; I48.91 Unspecified atrial fibrillation; J32.9 Chronic sinusitis, unspecified; J90 Pleural effusion, not elsewhere classified; L30.9 Dermatitis, unspecified; N28.1 Cyst of kidney, acquired; R13.10 Dysphagia, unspecified; B37.49 Other urogenital candidiasis; E78.5 Hyperlipidemia, unspecified; S90.821A Blister (nonthermal), right foot, initial encounter; X58.XXXA Exposure to other specified factors, initial encounter; Y92.9 Unspecified place or not applicable
CPT/HCPCS: 31720; 36415; 36600; 43246; 70450-TC; 71045-TC; 76705-TC; 76770-TC; 80048-TC; 80053-TC; 80061-TC; 80076-TC; 80202-TC; 81001; 82533; 82570-TC; 82607-TC; 82728-TC; 82784; 82803-TC; 82962-TC; 83540-TC; 83605-TC; 83735-TC; 84100-TC; 84155; 84165; 84300-TC; 84439-TC; 84443-TC; 84484-TC; 85025-TC; 85027-TC; 85378-TC; 85385-TC; 85396; 85610-TC; 85730-TC; 86140-TC; 86225; 86235; 86334; 86431-TC; 86704; 86705; 86706; 86707; 86709-TC; 86803; 86850-TC; 87040-TC; 87081-TC; 87086-TC; 87102-TC; 87340; 87350; 87517; 87806; 93307-TC; 93970-TC; 94002-TC; 94003-TC; 94640-TC; 94760-TC; 94762-TC; 94799-TC; 99082-TC; A4216; A4223; A6253; A6403; A7526; G0378; J0282; J0330; J0690; J0692; J1450; J1644; J1650; J1720; J1815; J2248; J2250; J2270; J2470; J2704; J3010; J3370; J3371; J3480; J3490; J7030; J7040; J7050; J7060; J7070; J7120; P9016

== ENCOUNTER 2024-08-30 13:54 | Inpatient (IN) | payer MEDICAID ==
[~2024-08-30] VITALS: Ht 170.2 cm; Wt 91.2 kg
[~2024-08-30 13:54] MED LIST changes: +ACET-73 PO; +ACET325T53 PO; +ARIP10TA57 PO; +ASPI-1169 PO; +BISA10SU11 RC; +DAPA10TA PO; +HYDR25TA4 PO; -IBUP-1955 PO; +LACT10SO29 PO; +LISI10TA29 PO; +MAGN400O6 GT; +MULT-213 GT; +NA P133E RC; -POLY17PO4 PO; +SENN8.6T19 PO
[2024-08-30 14:30] LABS: HEMATOCRIT 23 % (39-51); HEMOGLOBIN 7.7 g/dL (13.5-17.5); LYMPHOCYTES % (AUTO) 11.8 % (20.0-44.0); MEAN CORPUSCULAR HEMOGLOBIN 30 PG (26.0-33.0); MEAN CORPUSCULAR HGB CONC 34 g/dl (31.0-36.0); MEAN CORPUSCULAR VOLUME 90 fL (80-96); MONOCYTES % (AUTO) 23.5 % (2.0-12.0); NEUTROPHILS # (AUTO) 5.5 K/uL (1.8-8.9); NEUTROPHILS % (AUTO) 64.7 % (43.0-81.0); PLATELET COUNT (AUTO) 188 K/uL (150-450); RED BLOOD CELL COUNT(AUTO) 2.54 MIL/uL (4.5-6.0); RED CELL DISTRIBUTION WIDTH 19.8 % (11.5-15.0); WHITE BLOOD COUNT (AUTO) 8.5 K/uL (4.3-11.0)
[2024-08-30 14:48] LABS: CALCIUM, SERUM 7.4 mg/dL (8.5-10.1); CREATININE 0.7 mg/dL (0.6-1.3); POTASSIUM 3.6 mmol/L (3.5-5.1)
[2024-08-30] MEDS ORDERED: INSU100V28 SQ (15:16)
[2024-08-30] MEDS ORDERED: LACT-209 GT (15:16)
[2024-08-30] MEDS ORDERED: AMIN30LI66 GT (15:16)
[2024-08-30] MEDS ORDERED: ASCO500L2 GT (15:16)
[2024-08-30] MEDS ORDERED: SULF1TAB48 GT (15:16)
[2024-08-30] MEDS ORDERED: ACET-2070 GT (15:16)
[2024-08-30] MEDS ORDERED: APIX5TAB GT (15:16)
[2024-08-30] MEDS ORDERED: AMIO400T5 GT (15:16)
[2024-08-30] MEDS ORDERED: PANT40TA2 GT (15:16)
[2024-08-30] MEDS ORDERED: TOBR300A5 IH (15:16)
[2024-08-30] MEDS ORDERED: ZINC1CAP2 GT (15:16)
[2024-08-30] MEDS ORDERED: AMLO2.5T2 GT (15:16)
[2024-08-30] MEDS ORDERED: METO25TA6 GT (15:16)
[2024-08-30] MEDS ORDERED: IPRA0.2S49 IH (15:16)
[2024-08-30] MEDS ORDERED: DOCU100T2 GT (15:16)
[2024-08-30] MEDS ORDERED: LEVO750T46 GT (15:16)
[2024-08-30] MEDS ORDERED: FURO-144 GT (15:16)
[2024-08-30 15:17] LABS: APPEARANCE,URINE SLIGHTLY CLOUDY (CLEAR); BILIRUBIN,URINE NEGATIVE (NEGATIVE); BLOOD, URINE 3+ Ery/uL (NEGATIVE); COLOR,URINE YELLOW (YELLOW); KETONES,URINE NEGATIVE (NEGATIVE); LEUKOCYTE ESTERASE ,URINE 2+ (NEGATIVE); NITRITE, URINE NEGATIVE (NEGATIVE); PROTEIN,URINE TRACE mg/dl (NEGATIVE); UGLUCOSE NEGATIVE (NEGATIVE); UROBILINOGEN,URINE 0.2 EU/dL (0.2)
[2024-08-30 16:32] LABS: ADD URINE CULTURE YES; BACTERIA,URINE 1+ /HPF (None Seen); RBC,URINE 51-80 /HPF (0-2); WBC,URINE 21-50 /HPF (0-3)
[2024-08-30 16:33] LABS: YEAST,URINE Many /HPF (None Seen)
[2024-08-30] MEDS ORDERED: DEXTROSE 50%-WATER 50 ML DISP.SYRIN IV PRN (17:30)
[2024-08-30] MEDS ORDERED: ONDANSETRON HCL/PF 4 MG/2 ML VIAL IVP PRN (17:30)
[2024-08-30] MEDS ORDERED: Z GUARD REMEDY 4 OZ OINT TP PRN (17:30)
[2024-08-30] MEDS: CEFTRIAXONE 1 G in IV D5W 50 ML IV SCH (18:30)
[2024-08-30] MEDS: BLOOD SUGAR DIAGNOSTIC 1 EACH STRIP IN SCH (19:00)
[2024-08-30] MEDS ORDERED: IPRATROPIUM NEB FS 0.5 MG/2.5 ML AMPUL.NEB ONE (19:17)
[2024-08-30] MEDS: IPRATROPIUM NEB FS 0.5 MG/2.5 ML AMPUL.NEB NEB SCH (19:28)
[2024-08-30 21:02] LABS: ANISOCYTOSIS 1+; EOSINOPHILS % (MANUAL) 2 % (0-4); LYMPHOCYTES % (MANUAL) 9 % (16-48); MONOCYTES % (MANUAL) 6 % (0-11.0); NEUTROPHILS % (MANUAL) 82 (42-76); PLATELET ESTIMATE ADEQUATE; REACTIVE LYMPHOCYTES 1 % (0-0); ROULEAUX 1+
[2024-08-30] MEDS: JEVITY 1.2 CAL 1,000 ML BOTTLE GT SCH (22:39)
[2024-08-31] VITALS: BP 105/67; TEMP 98.7; O2SAT 99
[2024-08-31] MEDS: INSULIN REGULAR, HUMAN 100 UNIT/ML 3 ML VIAL SQ PRN (00:09)
[2024-08-31] MEDS: IV D5/0.45 NACL 1,000 ML IV PRN (00:09)
[2024-08-31 04:00] VITALS: BP 108/68; TEMP 98.7; O2SAT 98
[2024-08-31 08:00] VITALS: BP 108/66; TEMP 97.9; O2SAT 98
[2024-08-31] MEDS ORDERED: LIDOCAINE HCL/PF 1% 30 ML SDV ONE (08:21)
[2024-08-31 08:26] LABS: INR 1.08 (0.91-1.10); PROTHROMBIN TIME 11.4 SECS (9.2-11.1)
[2024-08-31 08:30] LABS: CALCIUM, SERUM 8.3 mg/dL (8.5-10.1); CREATININE 0.7 mg/dL (0.6-1.3); PHOSPHORUS 3.6 mg/dL (2.5-4.9); POTASSIUM 3.6 mmol/L (3.5-5.1)
[2024-08-31] MEDS ORDERED: FENTANYL PF 100MCG/2ML AMPUL ONE (08:43)
[2024-08-31] MEDS: DOCUSATE SODIUM LIQ 100 MG/10 ML UDC GT SCH (08:46)
[2024-08-31] MEDS: ASCORBIC ACID 500 MG TABLET GT SCH (08:46)
[2024-08-31] MEDS: MULTIVIT W/MINERALS 1 TAB TABLET GT SCH (08:46)
[2024-08-31] MEDS: PROSOURCE / PROSTAT (PYXIS) 30 ML UDC GT SCH (08:46)
[2024-08-31] MEDS: METOPROLOL TARTRATE 25 MG TABLET GT SCH (08:46)
[2024-08-31] MEDS: ZINC SULFATE 220 MG CAPSULE GT SCH (08:46)
[2024-08-31 08:50] LABS: BASOPHILS % (AUTO) 0.6 % (0.0-2.0); EOSINOPHILS # (AUTO) 0.3 K/uL (0.0-0.7); EOSINOPHILS % (AUTO) 4.4 % (0.0-6.0); HEMATOCRIT 21 % (39-51); HEMOGLOBIN 7.1 g/dL (13.5-17.5); LYMPHOCYTES % (AUTO) 13.4 % (20.0-44.0); MEAN CORPUSCULAR HEMOGLOBIN 31 PG (26.0-33.0); MEAN CORPUSCULAR HGB CONC 34 g/dl (31.0-36.0); MEAN CORPUSCULAR VOLUME 90 fL (80-96); MONOCYTES # (AUTO) 0.8 K/uL (0.1-1.30); MONOCYTES % (AUTO) 11.5 % (2.0-12.0); NEUTROPHILS % (AUTO) 70.1 % (43.0-81.0); PLATELET COUNT (AUTO) 173 K/uL (150-450); RED BLOOD CELL COUNT(AUTO) 2.28 MIL/uL (4.5-6.0); RED CELL DISTRIBUTION WIDTH 19.6 % (11.5-15.0); WHITE BLOOD COUNT (AUTO) 7.1 K/uL (4.3-11.0)
[2024-08-31] MEDS: PANTOPRAZOLE 40 MG VIAL IV SCH (09:54)
[2024-08-31] MEDS: FUROSEMIDE 40 MG TABLET GT SCH (09:54)
[2024-08-31] MEDS: AMIODARONE HCL 200 MG TABLET GT SCH (09:54)
[2024-08-31 10:40] LABS: ANISOCYTOSIS 1+; EOSINOPHILS % (MANUAL) 5 % (0-4); LYMPHOCYTES % (MANUAL) 16 % (16-48); MONOCYTES % (MANUAL) 5 % (0-11.0); MYELOCYTES % 4 % (0-0); NEUTROPHILS % (MANUAL) 70 (42-76); PLATELET ESTIMATE ADEQUATE
[2024-08-31 12:00] VITALS: BP 101/68; TEMP 97.7; O2SAT 100
[2024-08-31 16:00] VITALS: BP 112/69; TEMP 97.9; O2SAT 98
[2024-08-31 20:00] VITALS: BP 106/68; TEMP 98.4; O2SAT 98
[2024-08-31] MEDS: TOBRAMYCIN 80 MG/2 ML VIAL INH SCH (20:29)
[2024-09-01] VITALS: BP 116/65; TEMP 98.6; O2SAT 98
== END 2024-09-01 01:25 | DRG 463 ==
LOC: ER 14:03 → TELE1 20:22
PROVIDERS: ADMIT Nurse Practitioner Family
PROC: 5A1945Z Respiratory Ventilation, 24-96 Consecutive Hours (ICD-10-PCS; principal; 2024-08-30)
PROC: 06H03DZ Insertion of Intraluminal Device into Inferior Vena Cava, Percutaneous Approach (ICD-10-PCS; 2024-08-31)
PROC: B519YZZ Fluoroscopy of Inferior Vena Cava using Other Contrast (ICD-10-PCS; 2024-08-31)
PROC: B54BZZZ Ultrasonography of Right Lower Extremity Veins (ICD-10-PCS; 2024-08-31)
DX: N39.0 Urinary tract infection, site not specified (principal); G93.41 Metabolic encephalopathy; I82.403 Acute embolism and thrombosis of unspecified deep veins of lower extremity, bilateral; J96.10 Chronic respiratory failure, unspecified whether with hypoxia or hypercapnia; D62 Acute posthemorrhagic anemia; Z93.0 Tracheostomy status; Z99.11 Dependence on respirator [ventilator] status; I69.354 Hemiplegia and hemiparesis following cerebral infarction affecting left non-dominant side; E11.9 Type 2 diabetes mellitus without complications; B96.89 Other specified bacterial agents as the cause of diseases classified elsewhere; E78.5 Hyperlipidemia, unspecified; R31.9 Hematuria, unspecified; F20.9 Schizophrenia, unspecified; I10 Essential (primary) hypertension; Z79.82 Long term (current) use of aspirin; Z79.899 Other long term (current) drug therapy; Z66 Do not resuscitate; R13.10 Dysphagia, unspecified; Z93.1 Gastrostomy status; I25.10 Atherosclerotic heart disease of native coronary artery without angina pectoris; I25.2 Old myocardial infarction; R79.89 Other specified abnormal findings of blood chemistry; I67.2 Cerebral atherosclerosis; Z86.79 Personal history of other diseases of the circulatory system; Z79.01 Long term (current) use of anticoagulants; Z79.4 Long term (current) use of insulin; Z87.891 Personal history of nicotine dependence
CPT/HCPCS: 31720; 36415; 71045-TC; 74018; 80048-TC; 81001; 82962-TC; 83735-TC; 84100-TC; 85025-TC; 85610-TC; 86850-TC; 87081-TC; 94002-TC; 94003-TC; 94760-TC; 94762-TC; 94799-TC; 99082-TC; A4223; C1769; C1880; G0378; J0690; J0696; J1644; J1815; J2470; J3010; J3260; J3490; J7030; J7060

== ENCOUNTER 2024-11-30 11:35 | Inpatient (IN) | payer MEDICAID ==
[~2024-11-30] VITALS: Ht 162.6 cm; Wt 93.0 kg
[~2024-11-30 11:35] MED LIST changes: +ACET-2070 GT; -ACET-73 PO; -ACET325T53 PO; +AMIN30LI66 GT; +AMIO400T5 GT; +AMLO2.5T2 GT; +APIX5TAB GT; -ARIP10TA57 PO; +ASCO500L2 GT; -ASPI-1169 PO; -DAPA10TA PO; +DOCU100T2 GT; +FURO-144 GT; -HYDR25TA4 PO; +INSU100V28 SQ; +IPRA0.2S49 IH; +LACT-209 GT; -LACT10SO29 PO; +LEVO750T46 GT; -LISI10TA29 PO; +METO25TA6 GT; +PANT40TA2 GT; -SENN8.6T19 PO; +SULF1TAB48 GT; +TOBR300A5 IH; +ZINC1CAP2 GT
[2024-11-30 12:45] LABS: BASOPHILS # (AUTO) 0.1 K/uL (0.0-0.2); BASOPHILS % (AUTO) 0.4 % (0.0-2.0); EOSINOPHILS # (AUTO) 0.6 K/uL (0.0-0.7); HEMATOCRIT 25 % (39-51); HEMOGLOBIN 7.6 g/dL (13.5-17.5); LYMPHOCYTES # (AUTO) 1.5 K/uL (0.8-4.8); LYMPHOCYTES % (AUTO) 12.4 % (20.0-44.0); MEAN CORPUSCULAR HEMOGLOBIN 24 PG (26.0-33.0); MEAN CORPUSCULAR HGB CONC 30 g/dl (31.0-36.0); MEAN CORPUSCULAR VOLUME 80 fL (80-96); MONOCYTES % (AUTO) 8.4 % (2.0-12.0); NEUTROPHILS # (AUTO) 9.1 K/uL (1.8-8.9); NEUTROPHILS % (AUTO) 73.8 % (43.0-81.0); PLATELET COUNT (AUTO) 351 K/uL (150-450); RED BLOOD CELL COUNT(AUTO) 3.12 MIL/uL (4.5-6.0); WHITE BLOOD COUNT (AUTO) 12.3 K/uL (4.3-11.0)
[2024-11-30 12:53] LABS: ERYTHROCYTE SEDIMENTATION RATE 66 MM/HR (0-20)
[2024-11-30 12:57] LABS: CALCIUM, SERUM 8.7 mg/dL (8.5-10.1); CREATININE 0.8 mg/dL (0.6-1.3); POTASSIUM 3.9 mmol/L (3.5-5.1)
[2024-11-30 12:59] LABS: C-REACTIVE PROTEIN 8.32 mg/dL (0.0-0.30)
[2024-11-30] MEDS ORDERED: GLUC1KIT IM (13:06)
[2024-11-30] MEDS ORDERED: CHLO118L3 MM (13:06)
[2024-11-30] MEDS ORDERED: IPRA0.2S9 IH ×2 (13:06)
[2024-11-30] MEDS: VANCOMYCIN 1 GM in IV D5W 250 ML IV ONE (13:35)
[2024-11-30] MEDS ORDERED: MAGNESIUM HYDROXIDE 30 ML UDC PO PRN (15:30)
[2024-11-30] MEDS ORDERED: MAGNESIUM HYDROXIDE 30 ML UDC GT PRN (15:30)
[2024-11-30] MEDS ORDERED: MAG HYDROX/AL HYDROX/SIMETH 30 ML UDC PO PRN (15:30)
[2024-11-30] MEDS ORDERED: IPRATROPIUM NEB FS 0.5 MG/2.5 ML AMPUL.NEB IH PRN (15:30)
[2024-11-30] MEDS ORDERED: BISACODYL SUPP (10 MG) 10 MG/SUPP.RECT SUPP.RECT RC PRN (15:30)
[2024-11-30] MEDS ORDERED: Medication Not On Formulary EA (Acetaminophen 20 ML) GT PRN (15:30)
[2024-11-30] MEDS ORDERED: ZOLPIDEM TARTRATE 5 MG TABLET PO PRN (15:30)
[2024-11-30] MEDS ORDERED: ACETAMINOPHEN 325 MG TABLET PO PRN (15:30)
[2024-11-30] MEDS ORDERED: DEXTROSE 50%-WATER 50 ML DISP.SYRIN IV PRN (15:30)
[2024-11-30] MEDS ORDERED: ONDANSETRON HCL/PF 4 MG/2 ML VIAL IVP PRN (15:30)
[2024-11-30] MEDS ORDERED: NA PHOS,M-B/NA PHOS,DI-BA 1 EA ENEMA RC PRN (15:30)
[2024-11-30] MEDS ORDERED: GLUCAGON,HUMAN RECOMBINANT 1 MG/VIAL VIAL IM PRN (17:00)
[2024-11-30] MEDS: METOPROLOL TARTRATE 25 MG TABLET GT SCH (17:00)
[2024-11-30 17:37] VITALS: O2SAT 98
[2024-11-30] MEDS: ENOXAPARIN SODIUM 40 MG/0.4 ML DISP.SYRIN SQ SCH (17:43)
[2024-11-30] MEDS: PANTOPRAZOLE 40 MG TABLET.DR PO SCH (17:44)
[2024-11-30] MEDS: VANCOMYCIN HCL 1.25 GM in IV D5W 250 ML IV ONE (17:44)
[2024-11-30] MEDS: BLOOD SUGAR DIAGNOSTIC 1 EACH STRIP VI SCH (18:11)
[2024-11-30 20:00] VITALS: BP 93/59; TEMP 97.7; O2SAT 100
[2024-11-30] MEDS: IPRATROPIUM NEB FS 0.5 MG/2.5 ML AMPUL.NEB IH SCH (20:26)
[2024-11-30 20:27] VITALS: O2SAT 98
[2024-11-30 20:40] VITALS: O2SAT 100
[2024-11-30] MEDS: CHLORHEXIDINE GLUCONATE 4% 118 ML BOTTLE TP SCH (20:45)
[2024-11-30] MEDS: GLUCERNA 1.2 1,000 ML BOTTLE NG PRN (20:56)
[2024-11-30] MEDS: *INSULIN REGULAR(HUMULIN R)HUM 100 UNIT/ML VIAL SQ PRN (21:44)
[2024-11-30 23:56] VITALS: O2SAT 96
[2024-12-01] VITALS (18 sets, daily range): BP systolic 82–116; BP diastolic 57–74; TEMP 98.6; O2SAT 96–100
[2024-12-01] MEDS: VANCOMYCIN HCL 1.25 GM in IV D5W 250 ML IV SCH (04:30)
[2024-12-01] MEDS: INSULIN REGULAR, HUMAN 100 UNIT/ML 3 ML VIAL SQ PRN (06:33)
[2024-12-01 07:41] LABS: BASOPHILS % (AUTO) 0.4 % (0.0-2.0); EOSINOPHILS # (AUTO) 0.9 K/uL (0.0-0.7); EOSINOPHILS % (AUTO) 9.1 % (0.0-6.0); HEMATOCRIT 24 % (39-51); HEMOGLOBIN 7.5 g/dL (13.5-17.5); LYMPHOCYTES # (AUTO) 1.3 K/uL (0.8-4.8); LYMPHOCYTES % (AUTO) 12.6 % (20.0-44.0); MEAN CORPUSCULAR HEMOGLOBIN 24 PG (26.0-33.0); MEAN CORPUSCULAR HGB CONC 31 g/dl (31.0-36.0); MEAN CORPUSCULAR VOLUME 79 fL (80-96); MONOCYTES # (AUTO) 0.8 K/uL (0.1-1.30); MONOCYTES % (AUTO) 8.3 % (2.0-12.0); NEUTROPHILS # (AUTO) 7.1 K/uL (1.8-8.9); NEUTROPHILS % (AUTO) 69.6 % (43.0-81.0); PLATELET COUNT (AUTO) 298 K/uL (150-450); RED BLOOD CELL COUNT(AUTO) 3.06 MIL/uL (4.5-6.0); RED CELL DISTRIBUTION WIDTH 18.3 % (11.5-15.0); WHITE BLOOD COUNT (AUTO) 10.2 K/uL (4.3-11.0)
[2024-12-01] MEDS: AMIODARONE HCL 200 MG TABLET GT SCH (09:00)
[2024-12-01] MEDS: FUROSEMIDE 40 MG TABLET GT SCH (09:00)
[2024-12-01 09:19] LABS: CALCIUM, SERUM 8.6 mg/dL (8.5-10.1); CREATININE 0.7 mg/dL (0.6-1.3); MAGNESIUM 2.3 mg/dL (1.8-2.4); PHOSPHORUS 4.2 mg/dL (2.5-4.9); POTASSIUM 3.6 mmol/L (3.5-5.1)
[2024-12-01] MEDS: DOCUSATE SODIUM LIQ 100 MG/10 ML UDC GT SCH (09:40)
[2024-12-01] MEDS: ASCORBIC ACID 500 MG TABLET GT SCH (09:41)
[2024-12-01] MEDS: MULTIVIT W/MINERALS 1 TAB TABLET GT SCH (09:41)
[2024-12-01] MEDS: PROSOURCE / PROSTAT (PYXIS) 30 ML UDC GT SCH (09:52)
[2024-12-01] MEDS: IV NS 0.9% 1,000 ML BAG IV ONE (10:49)
[2024-12-01 16:32] LABS: ABG BASE EXCESS 6.8 mmol/L (-2.0-3.0); ABG PCO2 39.8 mmHg (35.0-48.0); ABG PH 7.503 (7.350-7.450); ABG TOTAL HEMOGLOBIN 7.5 G/dL (13.5-17.5); COHb 0.7 % (0.5-1.5); MetHb 0.4 % (0.0-1.5); O2Hb 94.9 % (94.0-97.0); SITE, ABG RIGHT RADIAL
[2024-12-01] MEDS: GLUCERNA 1.2 1,000 ML BOTTLE NG SCH (19:59)
[2024-12-01] MEDS: VANCOMYCIN 1 GM in IV D5W 250ml IV SCH (22:01)
[2024-12-02] VITALS (15 sets, daily range): BP systolic 111–118; BP diastolic 65–70; TEMP 98.1; O2SAT 95–99
[2024-12-02 06:30] LABS: BASOPHILS % (AUTO) 0.5 % (0.0-2.0); EOSINOPHILS # (AUTO) 0.7 K/uL (0.0-0.7); EOSINOPHILS % (AUTO) 7.2 % (0.0-6.0); HEMATOCRIT 23 % (39-51); LYMPHOCYTES % (AUTO) 9.8 % (20.0-44.0); MEAN CORPUSCULAR HEMOGLOBIN 24 PG (26.0-33.0); MEAN CORPUSCULAR HGB CONC 31 g/dl (31.0-36.0); MEAN CORPUSCULAR VOLUME 78 fL (80-96); MONOCYTES # (AUTO) 0.7 K/uL (0.1-1.30); MONOCYTES % (AUTO) 7.1 % (2.0-12.0); NEUTROPHILS # (AUTO) 7.7 K/uL (1.8-8.9); NEUTROPHILS % (AUTO) 75.4 % (43.0-81.0); PLATELET COUNT (AUTO) 324 K/uL (150-450); RED BLOOD CELL COUNT(AUTO) 2.89 MIL/uL (4.5-6.0); RED CELL DISTRIBUTION WIDTH 18.7 % (11.5-15.0); WHITE BLOOD COUNT (AUTO) 10.1 K/uL (4.3-11.0)
[2024-12-02 06:52] LABS: CALCIUM, SERUM 8.4 mg/dL (8.5-10.1); CREATININE 0.6 mg/dL (0.6-1.3); MAGNESIUM 2.2 mg/dL (1.8-2.4); PHOSPHORUS 3.4 mg/dL (2.5-4.9); POTASSIUM 3.6 mmol/L (3.5-5.1)
[2024-12-03] VITALS (8 sets, daily range): BP systolic 119; BP diastolic 73; TEMP 99.1; O2SAT 97–99
[2024-12-03 06:42] LABS: BASOPHILS # (AUTO) 0.1 K/uL (0.0-0.2); BASOPHILS % (AUTO) 0.5 % (0.0-2.0); EOSINOPHILS # (AUTO) 0.7 K/uL (0.0-0.7); EOSINOPHILS % (AUTO) 5.7 % (0.0-6.0); HEMATOCRIT 24 % (39-51); HEMOGLOBIN 7.4 g/dL (13.5-17.5); LYMPHOCYTES # (AUTO) 1.2 K/uL (0.8-4.8); LYMPHOCYTES % (AUTO) 10.4 % (20.0-44.0); MEAN CORPUSCULAR HEMOGLOBIN 24 PG (26.0-33.0); MEAN CORPUSCULAR HGB CONC 31 g/dl (31.0-36.0); MEAN CORPUSCULAR VOLUME 79 fL (80-96); MONOCYTES # (AUTO) 0.8 K/uL (0.1-1.30); MONOCYTES % (AUTO) 7.4 % (2.0-12.0); NEUTROPHILS # (AUTO) 8.6 K/uL (1.8-8.9); PLATELET COUNT (AUTO) 333 K/uL (150-450); RED BLOOD CELL COUNT(AUTO) 3.04 MIL/uL (4.5-6.0); RED CELL DISTRIBUTION WIDTH 18.6 % (11.5-15.0); WHITE BLOOD COUNT (AUTO) 11.4 K/uL (4.3-11.0)
[2024-12-03 07:09] LABS: CALCIUM, SERUM 8.5 mg/dL (8.5-10.1); CREATININE 0.6 mg/dL (0.6-1.3); MAGNESIUM 2.2 mg/dL (1.8-2.4); PHOSPHORUS 3.1 mg/dL (2.5-4.9); POTASSIUM 3.8 mmol/L (3.5-5.1)
[2024-12-03] MEDS ORDERED: CEPH-570 PO (09:51)
[2024-12-03] MEDS ORDERED: BACI/NEOM/POLY B OINT PKT 1 UDPKT PACKET TP SCH (11:00)
[2024-12-03] MEDS: DAKINS QUARTER STRENGTH (0.125%) 480 ML BOTTLE TOP SCH (11:31)
[2024-12-03] MEDS: Z GUARD REMEDY 4 OZ OINT TP PRN (11:32)
[2024-12-03] MEDS: NEOMY SULF/BACITRAC ZN/POLY 15 GM TUBE TP SCH (13:00)
== END 2024-12-03 14:00 | DRG 383 ==
LOC: ER 11:43 → MED 16:01
PROVIDERS: ADMIT Student in an Organized Health Care Education/Training Program; ATTEND Student in an Organized Health Care Education/Training Program
DX: L03.811 Cellulitis of head [any part, except face] (principal); G93.41 Metabolic encephalopathy; L89.154 Pressure ulcer of sacral region, stage 4; I82.403 Acute embolism and thrombosis of unspecified deep veins of lower extremity, bilateral; E11.40 Type 2 diabetes mellitus with diabetic neuropathy, unspecified; J96.11 Chronic respiratory failure with hypoxia; G81.94 Hemiplegia, unspecified affecting left nondominant side; L89.896 Pressure-induced deep tissue damage of other site; D64.9 Anemia, unspecified; E86.0 Dehydration; Z93.0 Tracheostomy status; Z99.11 Dependence on respirator [ventilator] status; Z66 Do not resuscitate; Z86.73 Personal history of transient ischemic attack (TIA), and cerebral infarction without residual deficits; E78.5 Hyperlipidemia, unspecified; Z93.1 Gastrostomy status; Z87.891 Personal history of nicotine dependence; Z79.899 Other long term (current) drug therapy; E11.621 Type 2 diabetes mellitus with foot ulcer; L97.519 Non-pressure chronic ulcer of other part of right foot with unspecified severity; R13.10 Dysphagia, unspecified; Z79.51 Long term (current) use of inhaled steroids; Z79.4 Long term (current) use of insulin; R79.89 Other specified abnormal findings of blood chemistry; Z86.79 Personal history of other diseases of the circulatory system; I67.2 Cerebral atherosclerosis; F20.9 Schizophrenia, unspecified; I10 Essential (primary) hypertension; J98.11 Atelectasis; E11.622 Type 2 diabetes mellitus with other skin ulcer; L97.412 Non-pressure chronic ulcer of right heel and midfoot with fat layer exposed
CPT/HCPCS: 31720; 36415; 70450-TC; 71045-TC; 72125-TC; 80048-TC; 80202-TC; 82803-TC; 82962-TC; 83735-TC; 84100-TC; 85025-TC; 85652-TC; 86140-TC; 87040-TC; 87081-TC; 94640-TC; 94760-TC; 94799-TC; A4223; A6403; G0378; J1650; J1815; J3370; J7030; J7040; J7050; J7060